=== PATIENT | female | born 1930 | race Caucasian/White ===

== ENCOUNTER 2017-06-11 06:48 | Inpatient (IN) | payer OTHER, MEDICARE ==
[~2017-06-11] VITALS: Ht 152.4 cm; Wt 45.0 kg
[~2017-06-11 06:48] MED LIST: AMLODIPINE10 MG PO; CALTRATE 600 +1 TAB PO; LEVOTHROID SO0.05 MG PO; VITAMIN B COMP1 EACH PO; VITAMIN D31000 UNI1 PO
--- NOTE | 2017-06-11 07:19 | ED NEURO DEFICIT/STROKE ---
History of Present Illness General Chief Complaint: Neuro Symptoms/ Deficit Stated Complaint: PER SON PT FEELING WEEK Source: patient, SON Exam Limitations: no limitations Vital Signs & Intake/Output Vital Signs & Intake/Output Vital Signs Date Time Temp Pulse Resp B/P B/P Pulse O2 O2 Flow FiO2 Mean Ox Delivery Rate 06/12 0800 99.4 75 20 142/40 96 Room Air 06/12 0400 96 Room Air 06/12 0000 98 Room Air 06/12 0000 99.7 82 24 128/66 98 Room Air 06/11 2000 95 Room Air 06/11 1600 99 Room Air 06/11 1600 100.9 94 22 158/80 99 Room Air ED Intake and Output 06/12 0000 06/11 1200 Intake Total 440 Output Total 1125 700 Balance -685 -700 Intake, Oral 440 Output, Urine 1125 700 Patient 99 lb 1.99 oz 94 lb 4 oz Weight Weight Bed scale Standing Scale Measurement Method Allergies Coded Allergies: aspirin (G.I. UPSET 06/11/17) Reconcile Medications Amlodipine Besylate 10 MG TABLET 1 TAB PO DAILY hypertension (Reported) Aspirin (Ecotrin*) 81 MG TABLET.DR 81 MG PO DAILY LightArrow Atorvastatin Calcium 80 MG TABLET 80 MG PO 1700 TIA Cholecalciferol (Vitamin D3) (Vitamin D3) 1,000 UNIT CAPSULE 1 CAP PO DAILY low vitamin d (Reported) Levothyroxine Sodium 50 MCG TABLET 1 TAB PO DAILY hypothyroidism (Reported) Vitamin B Complex 1 EACH CAPSULE 1 CAP PO DAILY SUPPLEMENTATION (Reported) Triage Note: 86 YEAR OLD FEMALE TO ER WITH HER SON , SON STATES THAT PT WOKE AROUND 0600 AND WAS FINE AROUND 0620 SHE STARTED TO FEEL WEAK AND WHEN SHE STARTED TO WALK SHE WAS DRAGGING HER RIGHT LEG, R SIDE NOTED WITH WEAK HAND GRASP PT ABLE TO AMBULATE BUT NOTED TO BE DRAGGING HER RIGHT SIDE AND R SIDE FACIAL DROOP AND SON STATES THAT SPEEACH IS OFF A LITTLER. DENIES HEADACHE.BP 161/90 Triage Nurses Notes Reviewed? yes Onset: Abrupt Duration: minute(s):, constant, continues in ED Timing: single episode today Severity: severe New Weakness: RUE, RLE HPI: PT PRESENTS FOR EVAL OF RIGHT ARM AND RIGHT LEG WEAKNESS, SLURRED SPEECH AND FACIAL DROOP THAT BEGAN AT 6:20AM WITNESSED BY PTS SON. Past History Travel History Traveled to [place] past 21 day No Medical History Any Pertinent Medical History? see below for history Neurological: NONE EENT: NONE Cardiovascular: hypertension Respiratory: NONE Gastrointestinal: NONE Hepatic: NONE Renal: NONE Musculoskeletal: NONE Psychiatric: NONE Endocrine: hypothyroidism Blood Disorders: NONE Cancer(s): NONE RAISE DRILLER/Reproductive: NONE Surgical History Surgical History: non-contributory Psychosocial History What is your primary language Yoruba Tobacco Use: Never used ETOH Use: denies use Illicit Drug Use: denies illicit drug use Family History Hx Contributory? No Review of Systems Review of Systems Constitutional: Reports: no symptoms. EENTM: Reports: no symptoms. Respiratory: Reports: no symptoms. Cardiovascular: Reports: no symptoms. GI: Reports: no symptoms. Genitourinary: Reports: no symptoms. Musculoskeletal: Reports: no symptoms. Skin: Reports: no symptoms. Neurological/Psychological: Reports: see HPI. Hematologic/Endocrine: Reports: no symptoms. Immunologic/Allergic: Reports: no symptoms. All Other Systems: Reviewed and Negative Physical Exam Physical Exam General Appearance: see below Cranial Nerves: see below Comments: Gen.: Well-nourished, well-developed, no acute respiratory distress. Head: Normocephalic, atraumatic. Eyes: Normal inspection bilaterally Ears: Normal inspection bilaterally Nose: Normal inspection Throat/mouth : Moist mucosa Neck: Supple, full range of motion, no goiter, equal carotid pulses, no carotid bruits Heart: Regular rate and rhythm, no murmurs rubs or gallops Lungs: Clear to auscultation bilaterally with normal air entry Chest: Nontender Back: Normal range of motion Abdomen: Soft, nontender, nondistended, normal bowel sounds Extremities: Normal range of motion grossly, equal radial pulses, no cyanosis clubbing or edema, right upper extremity and right lower extremity weakness 4 over 5 Neurologic: Cranial 2 through 12 grossly intact, speech is clear, gait not assessed (please see NIH stroke score) Skin: warm and dry Psychiatric: Calm, cooperative, no apparent delusions or hallucinations Core Measures CVA/TIA Diagnosis: Yes NIH Stroke Scale NIH Stroke Scale Response Value Level of Consciousness alert 0 LOC Questions answers both correctly 0 LOC Commands obeys both correctly 0 Best Gaze normal 0 Visual Miller no visual loss 0 Facial Paresis normal 0 Motor Arm - Left no drift 0 Motor Arm - Right drift 1 Motor Leg - Left no drift 0 Motor Leg - Right drift 1 Limb Ataxia present in one limb 1 Sensory normal 0 Best Language no aphasia 0 Dysarthria mild/mod slurring words 1 Extinction and Inattention no neglect 0 Total 4 Swallow Evaluation Pass Swallow eval date 06/11/17 Swallow eval time 0920 Sepsis Present: No Sepsis Focused Exam Completed? No Progress Differential Diagnosis: stroke Plan of Care: Orders Procedure Date/time Status ICU LAB BUNDLE 06/13 0500 Active CBC WITHOUT DIFFERENTIAL 06/13 0500 Active PROTHROMBIN TIME 06/12 2100 Active ICU LAB BUNDLE 06/12 2100 Active CBC WITHOUT DIFFERENTIAL 06/12 2100 Active EKG 06/12 1112 Active PARTIAL THROMBOPLASTIN TIME 06/12 0901 Complete PROTHROMBIN TIME 06/12 0901 Complete ICU LAB BUNDLE 06/12 0901 Complete CBC WITHOUT DIFFERENTIAL 06/12 0901 Complete Therapeutic Exercise 06/12 UNK Complete PT EVAL LOW COMPLEX 20 MIN 06/12 UNK Complete Gait Training 06/12 UNK Complete OT EVAL LOW COMPLEX 30 MIN 06/12 UNK Complete Redd, Insertion/Removal/Asses 06/12 UNK Active Current Medications Sig/Wyatt Start time Last Medication Dose Stop Time Status Admin Aspirin Buffered 81 MG DAILY 06/12 1100 AC 06/12 (Ecotrin) 1250 Levothyroxine Sodium 0.05 MG DAILY AC 06/12 0700 AC 06/12 (Synthroid) 0702 Atorvastatin Calcium 80 MG 1700 06/11 1930 AC 06/11 (Lipitor) 2102 Laboratory Tests 06/12/17 0858: Anion Gap 13, Estimated GFR > 60, Glucose 151 H, Calcium 8.5, Phosphorus 3.3, Magnesium 1.7, Total Bilirubin 0.7, AST 20, ALT 33, Albumin 3.5, PT 12.4, INR 1.18, APTT 28, CBC w Diff NO MAN DIFF REQ, RBC 4.20, MCV 88.0, MCH 29.7, RDW 13.9, MPV 10.4, Gran % 65.8, Lymphocytes % 21.9, Monocytes % 7.6, Eosinophils % 4.0, Basophils % 0.7, Absolute Granulocytes 3.6, Absolute Lymphocytes 1.2, Absolute Monocytes 0.4, Absolute Eosinophils 0.2, Absolute Basophils 0, PUBS MCHC 33.7 06/12/17 0848: Sodium Cancelled, Potassium Cancelled, Chloride Cancelled, Carbon Dioxide Cancelled, Anion Gap Cancelled, BUN Cancelled, Creatinine Cancelled, BUN/ Creatinine Ratio Cancelled 06/12/17 0610: Sodium Cancelled, Potassium Cancelled, Chloride Cancelled, Carbon Dioxide Cancelled, Anion Gap Cancelled, BUN Cancelled, Creatinine Cancelled, Estimated GFR Cancelled, Glucose Cancelled, Calcium Cancelled, Phosphorus Cancelled, Magnesium Cancelled, Total Bilirubin Cancelled, AST Cancelled, ALT Cancelled, Albumin Cancelled, PT Cancelled, INR Cancelled, APTT Cancelled, CBC w Diff Cancelled, WBC Cancelled, RBC Cancelled, Hgb Cancelled, Hct Cancelled, MCV Cancelled, MCH Cancelled, RDW Cancelled, Plt Count Cancelled, MPV Cancelled, Gran % Cancelled, Lymphocytes % Cancelled, Monocytes % Cancelled, Eosinophils % Cancelled, Basophils % Cancelled, Absolute Granulocytes Cancelled, Absolute Lymphocytes Cancelled, Absolute Monocytes Cancelled, Absolute Eosinophils Cancelled, Absolute Basophils Cancelled, PUBS MCHC Cancelled 06/11/172044: Anion Gap 13, Estimated GFR > 60, BUN/Creatinine Ratio 26.7 H, Triglycerides 75 , Cholesterol 174, LDL Cholesterol, Calc 97, HDL Cholesterol 62 H, Cholesterol/ HDL Ratio 3, APTT 27, CBC w Diff NO MAN DIFF REQ, RBC 4.05 L, MCV 89.0, MCH 30.0, RDW 14.1, MPV 10.6 H, Gran % 62.1, Lymphocytes % 23.5, Monocytes % 10.1 H, Eosinophils % 3.8, Basophils % 0.5, Absolute Granulocytes 3.9, Absolute Lymphocytes 1.5, Absolute Monocytes 0.6, Absolute Eosinophils 0.2, Absolute Basophils 0, PUBS MCHC 33.7, Urine Color YEL, Urine Clarity HAZY H, Urine pH 7.0, Ur Specific [place] 1.010, Urine Protein TRACE H, Urine Ketones NEG, Urine Nitrite NEG, Urine Bilirubin NEG, Urine Urobilinogen 0.2, Ur Leukocyte Esterase TRACE H, Ur Microscopic SEDIMENT EXAMINED, Urine RBC >75 H, Urine WBC 1-3 H, Ur Epithelial Cells RARE, Urine Bacteria RARE H, Urine Mucus RARE, Urine Hemoglobin LARGE H, Urine Glucose NEG Diagnostic Imaging: Discussed w/RAD: CT Scan. Radiology Impression: PATIENT: TIFFANI SANDOVAL PRESENT AGE: 86 PATIENT ACCOUNT NO: [id number] : 30 LOCATION: [facility] ORDERING PHYSICIAN: Vivek Chowdhury MD SERVICE DATE: 06/11/17 EXAM TYPE : CAT - CT HEAD WO IV CONTRAST EXAMINATION: CT HEAD WITHOUT CONTRAST CLINICAL INFORMATION: Right-sided weakness with slurred speech COMPARISON: 06/23/2011 TECHNIQUE: Contiguous axial imaging was performed from the skull base to vertex without intravenous administration of contrast. DLP: 543.14 mGy-cm FINDINGS: There is no evidence of acute intracranial hemorrhage or territorial infarction. No abnormal mass effect or midline shift is seen. Guerin to white matter differentiation is well preserved. No extra-axial fluid collections are identified. The ventricles are normal in size. Moderate volume loss is noted. There is moderate 2 severe periventricular white matter hypoattenuation consistent with chronic small vessel ischemic disease. The osseous structures and soft tissues are normal. The mastoid air cells and visualized portions of the paranasal sinuses are well aerated. IMPRESSION: No acute intracranial pathology identified. Chronic small vessel ischemic disease, which limits assessment for subtle acute infarct in these regions. This critical result was discussed with Vivek Chowdhury on 06/11/2017 7:38 AM, and it was ascertained that the content and urgency of the report was understood at the time of direct communication. DICTATED BY: Car Mujica MD DATE/TIME DICTATED:06/11/17735 TRUCK SERVICE MANAGER:JUAN DATE/TIME TRANSCRIBED:06/11/17735 CONFIDENTIAL, DO NOT COPY WITHOUT APPROPRIATE AUTHORIZATION. <Electronically signed in Other Vendor System> SIGNED BY: Car Mujica MD 06/11/1742 CXR Impression: PATIENT: TIFFANI SANDOVAL PRESENT AGE: 86 PATIENT ACCOUNT NO: [id number] : 30 LOCATION: [facility] ORDERING PHYSICIAN: Greg Dominguez MD SERVICE DATE: 06/11/17 EXAM TYPE: RAD - XRY- PORTABLE CHEST XRAY EXAMINATION: XR PORTABLE CHEST CLINICAL INFORMATION: Weakness COMPARISON: None TECHNIQUE: Portable frontal view of the chest was obtained. FINDINGS: Lung volumes are symmetric. No focal consolidation is seen. No evidence of pneumothorax, pleural effusion, or pulmonary edema. The cardiomediastinal contour is unremarkable. No acute osseous findings are seen. IMPRESSION: No acute cardiopulmonary findings. DICTATED BY: Car Mujica MD DATE/TIME DICTATED:06/11/17800 TRUCK SERVICE MANAGER:JUAN DATE/TIME TRANSCRIBED:06/11/17800 CONFIDENTIAL, DO NOT COPY WITHOUT APPROPRIATE AUTHORIZATION. <Electronically signed in Other Vendor System> SIGNED BY: Guanako POLOCar 06/11/17805 Initial ED EKG: NSR, RBBB Prior EKG: unchanged Comments: 07:25 D/W DR VASQUEZ. SUGGESTS CTA WHEN BUN/CR AVAILABLE. PT CANDIDATE FOR TPA. 07:39 per radiology, ct without acute change. 06/11/2017 7:43:16 AM patient's case discussed with Dr. Vasquez who feels the patient is a TPA candidate. If renal functions are appropriate patient should have a CTA for consideration of endovascular intervention. 06/11/2017 8:02:21 AM Tiffani and her son are tempting to contact another family member regarding administration of TPA. 06/11/2017 10:15:48 AM Laurita Diane MD notified of patient. 06/11/2017 11:41:15 AM patient's case discussed with SHANTE Austin who is requesting Dr. Addison review the CAT scan. he or Dr. Addison will call back with a recommendation on admission. 06/11/2017 11:53:01 AM according to SHANTE Austin, Dr. Addison has reviewed the CAT scan and feels the patient does not require transfer to a different facility and that the pseudoaneurysms may simply be a reflection of tortuosity of the vasculature. Departure Departure Disposition: STILL A PATIENT Condition: Stable Clinical Impression Primary Impression: CVA (cerebral vascular accident) Qualifiers: CVA mechanism: other Qualified Code: I63.8 - Other cerebral infarction Referrals: Shantelle Vega APRN (PCP/Family) Departure Forms: Customer Survey General Discharge Information Prescriptions: Current Visit Scripts Atorvastatin Calcium 80 MG PO 1700 30 Days Aspirin (Ecotrin*) 81 MG PO DAILY 30 Days Admission Note Spoke With: Laurita Diane MD Documentation of Exam: Documentation of any treatments & extenuating circumstances including Concerns Regarding Discharge (functional status, medication knowledge or non-compliance, living conditions, etc.) that warrant an admission rather than observation: Patient presents with clinical signs and symptoms of an acute CVA and that criterion for TPA administration. This patient now requires an IV infusion of TPA and ICU level care with close clinical monitoring of vital signs and neurologic status. Neurology consult should be obtained. Reversible causes of the patient's CVA should be investigated and treated accordingly. PT consult should be obtained given the patient's persistent right arm weakness for the possibility of short-term rehabilitation placement. Patient's medical management should be optimized. I feel she will require a multiple day hospitalization. Critical Care Note Critical Care Note Critical Care Time: 30-74 min
--- NOTE | 2017-06-11 07:42 | CT SCAN REPORT ---
EXAMINATION: CT HEAD WITHOUT CONTRAST CLINICAL INFORMATION: Right-sided weakness with slurred speech COMPARISON: 06/23/2011 TECHNIQUE: Contiguous axial imaging was performed from the skull base to vertex without intravenous administration of contrast. DLP: 543.14 mGy-cm FINDINGS: There is no evidence of acute intracranial hemorrhage or territorial infarction. No abnormal mass effect or midline shift is seen. Guerin to white matter differentiation is well preserved. No extra-axial fluid collections are identified. The ventricles are normal in size. Moderate volume loss is noted. There is moderate 2 severe periventricular white matter hypoattenuation consistent with chronic small vessel ischemic disease. The osseous structures and soft tissues are normal. The mastoid air cells and visualized portions of the paranasal sinuses are well aerated. IMPRESSION: No acute intracranial pathology identified. Chronic small vessel ischemic disease, which limits assessment for subtle acute infarct in these regions. This critical result was discussed with Vivek Chowdhury on 06/11/2017 7:38 AM, and it was ascertained that the content and urgency of the report was understood at the time of direct communication.
[2017-06-11 07:55] LABS: ABSOLUTE BASOPHIL COUNT 0 /CUMM (0.0-0.2); ABSOLUTE EOSINOPHIL COUNT 0.3 /CUMM (0.0-0.7); ABSOLUTE GRANULOCYTE CT 2.9 /CUMM (1.4-6.5); ABSOLUTE LYMPH COUNT 1.4 /CUMM (1.2-3.4); ABSOLUTE MONOCYTE COUNT 0.4 /CUMM (0.10-0.60); BASOPHIL % 0.5 % (0.0-2.0); EOSINOPHIL % 5.2 % (0-5); GRANULOCYTE % 59.7 % (42.2-75.2); MEAN CORPUSCULAR HGB 29.9 PG (27.0-31.0); MEAN CORPUSCULAR HGB CONC 33.6 G/DL (33.0-37.0); MEAN PLATELET VOLUME 10.8 FL (7.4-10.4); PLATELET COUNT 180 /CUMM (130-400); RBC DISTRIBUTION WIDTH 13.6 % (11.5-14.5); RED BLOOD CELL CT 4.49 /CUMM (4.20-5.40); WHITE BLOOD CELL COUNT 4.9 /CUMM (4.8-10.8)
[2017-06-11 07:56] LABS: PT 11.2 SEC (9.4-12.5); PTT 27 SEC (25-37)
--- NOTE | 2017-06-11 08:06 | RADIOLOGY REPORT ---
EXAMINATION: XR PORTABLE CHEST CLINICAL INFORMATION: Weakness COMPARISON: None TECHNIQUE: Portable frontal view of the chest was obtained. FINDINGS: Lung volumes are symmetric. No focal consolidation is seen. No evidence of pneumothorax, pleural effusion, or pulmonary edema. The cardiomediastinal contour is unremarkable. No acute osseous findings are seen. IMPRESSION: No acute cardiopulmonary findings.
--- NOTE | 2017-06-11 10:48 | CT SCAN REPORT ---
EXAMINATION: CT ANGIOGRAM BRAIN CLINICAL INFORMATION: 86-year-old woman with right-sided weakness. Receiving IV TPA. COMPARISON: 06/11/[address] TECHNIQUE: Test bolus sequences followed by intravenous administration 125 mL of Optiray 350. Helical imaging was performed in the axial plane from the skull base to the vertex. A delayed postcontrast CT of the head was also performed. The data was processed at the production technologist's workstation for generation of MIP sequences. Angled MIPs and volume rendered reformatted images were also generated at an offline 3D workstation. Stenoses are assessed in accordance with NASCET criteria unless otherwise indicated. DLP: 1016 mGy-cm FINDINGS: Brain: No intracranial mass, hemorrhage, extra-axial collection, or midline shift is apparent. No pathologic intra-axial enhancement is visualized. Fairly extensive chronic microvascular ischemic changes are noted throughout the brain with decreased perfusion in the left basal ganglia that is suspected to be chronic. Diffuse chronic volume loss is approximately stable. Mild mucosal thickening is noted in the left maxillary sinus. Brain CTA: There is saccular and fusiform ectasia of both distal cervical ICAs with associated tortuosity. 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 There is normal opacification of major intracranial arteries. There is moderate atherosclerotic irregularity of both cavernous carotid arteries. No focal flow-limiting stenosis, discrete proximal large artery occlusion, or saccular intradural aneurysm is identified. Timing of the contrast allows assessment of the major dural venous sinuses, which all opacify normally. IMPRESSION: No acute intracranial large artery occlusion is identified. The appearance of both distal cervical ICAs is abnormal and suggests sequelae of chronic fibromuscular dysplasia, although these vessels are incompletely assessed on this dedicated brain CTA.
--- NOTE | 2017-06-11 12:01 | Cons- Neurology ---
See Addendum General Information and HPI Consulting Request Date of Consult: 06/11/17 Requested By: Dr Chowdhury Reason for Consult: Suspected stroke syndrome Source of Information: patient, family, Vivek Chowdhury MD Exam Limitations: no limitations History of Present Illness: 86-year-old right-handed woman states she was in the kitchen around 5:30 this morning making her son's lunch, preparing some chicken when her right arm and hand began to feel numb and weak. Her son found her speech to be somewhat slurred. Her gait was a bit unsteady. There were no falls. There was no headache dizziness or visual changes. She is in the midst of having cataract procedures with Dr. Pennington. She was deemed a candidate for TPA, which she received. Currently, she is essentially free from any right-sided deficits aside from a very slight right pronator drift. There is a prior history of a TIA in about 2011 according to her son. At that time she was placed on daily aspirin but discontinued its use due to GI upset. There is no known family history of stroke. She has a remote history of brief tobacco use. She has been under the care of an orthopedist and a physical therapy for low back pain. Allergies/Medications Allergies: Coded Allergies: MDX - Aspirin (Aspirin) (G.I. UPSET 02/24/15) Home Med List: Amlodipine Besylate (Amlodipine) 10 MG TAB 1 TAB PO DAILY BP (Reported) CHOLECALCIFEROL (VITAMIN D3) (Vitamin D3) 1,000 IU SGL 1 SGL PO DAILY SUPPLEMENT (Reported) Levothyroxine Sodium (Levothroid Sodium) 0.05 MG TAB 1 TAB PO DAILY THYROID ( Reported) Vitamin B Complex 1 CAP CAP 1 CAP PO DAILY SUPPLEMENT (Reported) Current Medications: Current Medications Sig/Wyatt Start time Last Medication Dose Route Stop Time Status Admin Alteplase, 3.8476 MG BOLUS ONE 06/11 08 DC 06/11 Recombinant IV 06/11 0831 0850 Alteplase, 34.6283 MG ONCE ONE 06/11 0830 DC 06/11 Recombinant IV 06/11 0831 0851 Alteplase, 0 .STK-MED ONE 06/11 0826 DC Recombinant IV Aspirin 0 .STK-MED ONE 06/11 1024 DC PO Aspirin 81 MG ONCE ONE 06/11 1015 DC 06/11 PO 06/11 1016 1020 Review of Systems Review of Systems: REVIEW OF SYSTEMS: (-) = negative / normal blank = not discussed Neurologic: see HPI Eyes: Wears eyeglasses, having cataract surgery with Dr. Peters ENT: (-) Constitutional: (-) CV: Has seen Robert Martínez MD in the past, denies cardiac symptoms, takes amlodipine for hypertension Respiratory: (-) /Renal: (-) Musculoskeletal: Low back pain Skin: (-) Psychiatric: (-) Heme: (-) GI: (-) Allergy/Immune: (-) Endocrine: Stable hypothyroidism Other: (-) Past History Travel History Traveled to [place] past 21 day No Medical History Neurological: NONE EENT: NONE Cardiovascular: hypertension Respiratory: NONE Gastrointestinal: NONE Hepatic: NONE Renal: NONE Musculoskeletal: NONE Psychiatric: NONE Endocrine: hypothyroidism Blood Disorders: NONE Cancer(s): NONE 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 Surgical History Surgical History: non-contributory Psychosocial History ETOH Use: denies use Illicit Drug Use: denies illicit drug use Employment History Employment: Retired Exam & Diagnostic Data Vital Signs and I&O Vital Signs Date Time Temp Pulse Resp B/P B/P Pulse O2 O2 Flow FiO2 Mean Ox Delivery Rate 06/11 1150 82 20 120/80 98 Room Air 06/11 1120 88 20 120/84 98 Room Air 06/11 1050 90 20 120/80 98 Room Air 06/11 1035 98.6 88 20 130/80 98 Room Air 06/11 1020 86 20 140/80 97 Room Air 06/11 1005 85 20 130/72 98 Room Air 06/11 0950 88 20 130/70 96 Room Air 06/11 0935 99.0 83 20 138/80 98 Room Air 06/11 0920 90 20 126/70 98 Room Air 06/11 0905 89 20 130/80 98 Room Air 06/11 0850 91 20 138/80 98 Room Air 06/11 0815 98 Room Air 06/11 0809 98.4 94 20 150/80 96 Room Air 06/11 0652 97.0 110 20 161/90 96 Room Air Intake & Output 06/11 1600 06/11 0800 06/11 0000 Intake Total Output Total 700 Balance -700 Output, Urine 700 Patient 94 lb 4 oz 89 lb 15.99 oz Weight Weight Standing Scale Measurement Method Physical Exam: PHYSICAL EXAMINATION: nl = normal NT or blank = not tested GENERAL Appearance: nl Head: nl Eyes: nl ENT: nl Neck: nl Carotids: nl Lungs: nl Heart: nl Extremities: Arthritic changes in the hands NEUROLOGIC MENTAL STATUS Level of consciousness: nl Orientation: nl Attention / Concentration: nl Memory: nl Fund of Knowledge: nl Speech / Language: nl NEUROLOGIC CRANIAL NERVES I: Olfaction: NT II: Optic nerves: nl Visual pérez: nl III: Pupils: nl Levator palpebrae: nl III, IV, : Ocular alignment: nl Extraocular motility: nl Pursuits/ saccades: nl V: Facial sensation: nl Masseter/Pterygoids: nl VII: Facial Motor: nl VIII: Hearing (finger rub): nl IX, X: Uvula and palate: nl XI: SCM, Upper trap.: nl XII: Tongue: nl MOTOR / NEUROMUSCULAR Bulk: nl Tone: nl; very slight right pronator drift Strength: nl Rapid alternating movements: nl Fine motor movements: nl Abnormal / involuntary movements: none CEREBELLAR / COORDINATION: intact SENSATION: intact to light touch, joint position, vibration, temperature DTR's symmetrically trace to 1+ PLANTARS: flexor GAIT: Not tested Last 48 Hours of Lab Results: Laboratory Tests 06/11 0738 Chemistry Sodium (137 - 145 mmol/L) 141 Potassium (3.5 - 5.1 mmol/L) 3.9 Chloride (98 - 107 mmol/L) 102 Carbon Dioxide (22 - 30 mmol/L) 25 Anion Gap (5 - 16) 14 BUN (7 - 17 mg/dL) 16 Creatinine (0.5 - 1.0 mg/dL) 0.6 Estimated GFR (>60 ml/min) > 60 BUN/Creatinine Ratio (7 - 25 %) 26.7 H Glucose (65 - 99 mg/dL) 147 H Calcium (8.4 - 10.2 mg/dL) 9.6 Total Bilirubin (0.2 - 1.3 mg/dL) 0.6 AST (14 - 36 U/L) 26 ALT (9 - 52 U/L) 31 Alkaline Phosphatase (<127 U/L) 53 Total Protein (6.3 - 8.2 g/dL) 6.9 Albumin (3.5 - 5.0 g/dL) 4.4 Globulin (1.9 - 4.2 gm/dL) 2.5 Albumin/Globulin Ratio (1.1 - 2.2 %) 1.8 Free T4 (0.85 - 1.93 ng/dL) 1.60 Total T3 (0.97 - 1.69 ng/mL) 1.11 TSH &T3 &Free T4 Intrp (0.270 - 4.20 uIU/mL) 4.770 H Coagulation PT (9.4 - 12.5 SEC) 11.2 INR (0.90 - 1.19) 1.07 APTT (25 - 37 SEC) 27 Hematology CBC w Diff NO MAN DIFF REQ WBC (4.8 - 10.8 /CUMM) 4.9 RBC (4.20 - 5.40 /CUMM) 4.49 Hgb (12.0 - 16.0 G/DL) 13.4 Hct (37 - 47 %) 40.0 MCV (81.0 - 99.0 FL) 89.0 MCH (27.0 - 31.0 PG) 29.9 RDW (11.5 - 14.5 %) 13.6 Plt Count (130 - 400 /CUMM) 180 MPV (7.4 - 10.4 FL) 10.8 H Gran % (42.2 - 75.2 %) 59.7 Lymphocytes % (20.5 - 51.1 %) 27.4 Monocytes % (1.7 - 9.3 %) 7.2 Eosinophils % (0 - 5 %) 5.2 H Basophils % (0.0 - 2.0 %) 0.5 Absolute Granulocytes (1.4 - 6.5 /CUMM) 2.9 Absolute Lymphocytes (1.2 - 3.4 /CUMM) 1.4 Absolute Monocytes (0.10 - 0.60 /CUMM) 0.4 Absolute Eosinophils (0.0 - 0.7 /CUMM) 0.3 Absolute Basophils (0.0 - 0.2 /CUMM) 0 PUBS MCHC (33.0 - 37.0 G/DL) 33.6 Imaging/Other Studies: PATIENT: DESTINI SANDOVAL PRESENT AGE: 86 PATIENT ACCOUNT NO: [id number] : 30 LOCATION: [facility] ORDERING PHYSICIAN: Vivek Chowdhury MD SERVICE DATE: 06/11/17 EXAM TYPE: CAT - CT HEAD WO IV CONTRAST EXAMINATION: CT HEAD WITHOUT CONTRAST CLINICAL INFORMATION: Right-sided weakness with slurred speech COMPARISON: 06/23/2011 TECHNIQUE: Contiguous axial imaging was performed from the skull base to vertex without intravenous administration of contrast. DLP: 543.14 mGy-cm FINDINGS: There is no evidence of acute intracranial hemorrhage or territorial infarction. No abnormal mass effect or midline shift is seen. Guerin to white matter differentiation is well preserved. No extra-axial fluid collections are identified. The ventricles are normal in size. Moderate volume loss is noted. There is moderate 2 severe periventricular white matter hypoattenuation consistent with chronic small vessel ischemic disease. The osseous structures and soft tissues are normal. The mastoid air cells and visualized portions of the paranasal sinuses are well aerated. IMPRESSION: No acute intracranial pathology identified. Chronic small vessel ischemic disease, which limits assessment for subtle acute infarct in these regions. This critical result was discussed with Vivek Chowdhury on 06/11/2017 7:38 AM, and it was ascertained that the content and urgency of the report was understood at the time of direct communication. DICTATED BY: Car Mujica MD DATE/TIME DICTATED:06/11/17735 CYBER INCIDENT RESPONDER:JUAN DATE/TIME TRANSCRIBED:06/11/17735 CONFIDENTIAL, DO NOT COPY WITHOUT APPROPRIATE AUTHORIZATION. <Electronically signed in Other Vendor System> SIGNED BY: Car Mujica MD 06/11/17 0742 PATIENT: DESTINI SANDOVAL PRESENT AGE: 86 PATIENT ACCOUNT NO: [id number] : 30 LOCATION: [facility] ORDERING PHYSICIAN: Vivek Chowdhury MD SERVICE DATE: 06/11/17 EXAM TYPE: CAT - CT HEAD ANGIOGRAM EXAMINATION: CT ANGIOGRAM BRAIN CLINICAL INFORMATION: 86-year-old woman with right-sided weakness. Receiving IV TPA. COMPARISON: 06/11/[address] TECHNIQUE: Test bolus sequences followed by intravenous administration 125 mL of Optiray 350. Helical imaging was performed in the axial plane from the skull base to the vertex. A delayed postcontrast CT of the head was also performed. The data was processed at the industrial technologist's workstation for generation of MIP sequences. Angled MIPs and volume rendered reformatted images were also generated at an offline 3D workstation. Stenoses are assessed in accordance with NASCET criteria unless otherwise indicated. DLP: 1016 mGy-cm FINDINGS: Brain: No intracranial mass, hemorrhage, extra-axial collection, or midline shift is apparent. No pathologic intra-axial enhancement is visualized. Fairly extensive chronic microvascular ischemic changes are noted throughout the brain with decreased perfusion in the left basal ganglia that is suspected to be chronic. Diffuse chronic volume loss is approximately stable. Mild mucosal thickening is noted in the left maxillary sinus. Brain CTA: There is saccular and fusiform ectasia of both distal cervical ICAs with associated tortuosity. 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 There is normal opacification of major intracranial arteries. There is moderate atherosclerotic irregularity of both cavernous carotid arteries. No focal flow-limiting stenosis, discrete proximal large artery occlusion, or saccular intradural aneurysm is identified. Timing of the contrast allows assessment of the major dural venous sinuses, which all opacify normally. IMPRESSION: No acute intracranial large artery occlusion is identified. The appearance of both distal cervical ICAs is abnormal and suggests sequelae of chronic fibromuscular dysplasia, although these vessels are incompletely assessed on this dedicated brain CTA. DICTATED BY: Citlalli Renner MD DATE/TIME DICTATED:06/11/171033 CYBER INCIDENT RESPONDER:JUAN DATE/TIME TRANSCRIBED:06/11/171033 CONFIDENTIAL, DO NOT COPY WITHOUT APPROPRIATE AUTHORIZATION. Assessment/Plan Assessment: Small stroke versus TIA, left hemispheric, likely subcortical based on clinical presentation. Stroke risk factors: Prior TIA, hypertension Recommendations: Admitted to the medical ICU for frequent neuro checks and blood pressure monitoring. Use short acting antihypertensive medications as needed to keep the systolic blood pressure lower than 1 80 mmHg If her repeat head CT is stable 24 hours post TPA infusion, then would begin antiplatelet therapy either in the form of Aspirin 81 mg per day taken with food , or,if she is unable to tolerate aspirin from a GI perspective, then would instead use Plavix 75 mg daily Check a fasting lipid profile and add a high intensity statin. For now use Venodyne boots for DVT prophylaxis Consult physical therapy tomorrow. Copies To: Court POLO,Greg Mann Consult Acknowledgment - Thank you for your consult request.
--- NOTE | 2017-06-11 12:31 | History & Physical ---
Corie Cummings 06/11/17 1231: General Information and HPI MD Statement: I have seen and personally examined DESTINI SANDOVAL and documented this H&P. The patient is a 86 year old F who presented with a patient stated chief complaint of Weakness Source of Information: patient, family, Vivek Chowdhury MD Exam Limitations: no limitations History of Present Illness: 86 year old woman with pmh hypertension, hypothyroidism brought in by son for upper and lower right sided weakness which started around 6:30am this morning. Ms. Sandoval is a very active 86-year-old who is independent with all of her activities of daily living and managing her own finances. Around 6:30 this morning she was preparing lunch for one of her sons when she felt a weakness and dragging sensation in her right leg with some funny feeling in her right hand this weakness progressively worsened and she felt very scared until she was unable to move her right foot at this time they brought her over to the ED. Both son and patient report that her symptoms started to improve a little bit prior to the TPA and completely resolved after TPA was administered. Denies any headache, dizzinees, fever, chills, cough, chest pain, palpitations, syncope, numbness, tingling, bowel and bladder symptoms. 3 years ago Shantelle Vega her HEAD MIXER had sent her up for work up with her vessel manager Dr. Martínez as she felt she had irregular heartbeat. An echo, EKG and a 24-hour Holter monitor was done which was normal. Allergies/Medications Allergies: Coded Allergies: aspirin (G.I. UPSET 06/11/17) Home Med list Amlodipine Besylate 10 MG TABLET 1 TAB PO DAILY hypertension (Reported) CHOLECALCIFEROL (VITAMIN D3) (Vitamin D3) 1,000 IU SGL 1 SGL PO DAILY SUPPLEMENT (Reported) Levothyroxine Sodium 50 MCG TABLET 1 TAB PO DAILY hypothyroidism (Reported) Vitamin B Complex 1 CAP CAP 1 CAP PO DAILY SUPPLEMENT (Reported) Compliance With Home Meds: GOOD Past History Travel History Traveled to [place] past 21 day No Medical History Neurological: NONE EENT: NONE Cardiovascular: hypertension Respiratory: NONE Gastrointestinal: NONE Hepatic: NONE Renal: NONE Musculoskeletal: NONE Psychiatric: NONE Endocrine: hypothyroidism Blood Disorders: NONE 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 Home Who Do You Live With? self Services at Home: None Smoking Status: Former Smoker ETOH Use: denies use Illicit Drug Use: denies illicit drug use Name of POA/HCP: her two sons Functional Ability ADLs Independent: dressing, eating, toileting, bathing. Ambulation: independent IADLs Independent: shopping, housework, finances, food prep, telephone, transportation , medication admin. Employment History Employment Retired Review of Systems Review of Systems Constitutional: Denies: chills, diaphoresis, fever, malaise, weakness, unexplained weight loss. Cardiovascular: Denies: chest pain, edema, orthopena, palpitations, peripheral edema, syncope. Respiratory: Denies: cough, hemoptysis, orthopnea, short of breath, sputum production, stridor, wheezing. GI: Denies: abdominal pain, bloating, constipation, diarrhea, distention, bowel incontinence, melena, nausea, bloody stool, changes in stool, vomiting, steatorrhea. Genitourinary: Denies: discharge, dysuria, frequency, hematuria, hesitation, nocturia, pain, urgency. Neurological/Psychological: Denies: anxiety, ataxia, cognitive dysfunction, confusion, depressed, dementia, emotional problems, headache, numbness, paresthesia, pre-existing deficit, petit mal seizures, tingling, tremors, tonic-clonic seizures, unable to move lower ext , unable to move upper ext, weakness, other. Exam & Diagnostic Data Last 24 Hrs of Vital Signs/I&O Vital Signs Date Time Temp Pulse Resp B/P B/P Pulse O2 O2 Flow FiO2 Mean Ox Delivery Rate 06/11 1250 98.1 89 20 130/70 98 Room Air 06/11 1220 95 20 120/68 97 Room Air 06/11 1150 82 20 120/80 98 Room Air 06/11 1120 88 20 120/84 98 Room Air 06/11 1050 90 20 120/80 98 Room Air 06/11 1035 98.6 88 20 130/80 98 Room Air 06/11 1020 86 20 140/80 97 Room Air 06/11 1005 85 20 130/72 98 Room Air 06/11 0950 88 20 130/70 96 Room Air 06/11 0935 99.0 83 20 138/80 98 Room Air 06/11 0920 90 20 126/70 98 Room Air 06/11 0905 89 20 130/80 98 Room Air 06/11 0850 91 20 138/80 98 Room Air 06/11 0815 98 Room Air 06/11 0809 98.4 94 20 150/80 96 Room Air 06/11 0652 97.0 110 20 161/90 96 Room Air Intake & Output 06/11 1600 06/11 0800 06/11 0000 Intake Total Output Total 1400 Balance -1400 Output, Urine 1400 Patient 94 lb 4 oz 89 lb 15.99 oz Weight Weight Standing Scale Measurement Method Physical Exam General Appearance Alert, Oriented X3, Cooperative, No Acute Distress Skin No Rashes, No Breakdown HEENT Atraumatic, right eye irregular shape s/p cataract surgery Neck Supple, No JVD, No thryomegaly Lymphatic Cervical nl Cardiovascular Regular Rate, Normal S1, Normal S2, systolic murmur Lungs Clear to Auscultation, Normal Air Movement Abdomen Normal Bowel Sounds, Soft, No Tenderness Neurological Normal Speech, Strength at 5/5 X4 Ext, Normal Tone, Sensation Intact, Cranial Nerves 3-12 NL, Reflexes 2+, negative babinski Extremities No Edema Diagnostic Data EKG Results Normal sinus RBBB, HR 89, QTC 492 CXR Results SERVICE DATE: 06/11/17 EXAM TYPE: RAD - XRY-PORTABLE CHEST XRAY FINDINGS: Lung volumes are symmetric. No focal consolidation is seen. No evidence of pneumothorax, pleural effusion, or pulmonary edema. The cardiomediastinal contour is unremarkable. No acute osseous findings are seen. IMPRESSION: No acute cardiopulmonary findings. Other Results SERVICE DATE: 06/11/17 EXAM TYPE: CAT - CT HEAD WO IV CONTRAST EXAMINATION: FINDINGS: There is no evidence of acute intracranial hemorrhage or territorial infarction. No abnormal mass effect or midline shift is seen. Guerin to white matter differentiation is well preserved. No extra-axial fluid collections are identified. The ventricles are normal in size. Moderate volume loss is noted. There is moderate 2 severe periventricular white matter hypoattenuation consistent with chronic small vessel ischemic disease. The osseous structures and soft tissues are normal. The mastoid air cells and visualized portions of the paranasal sinuses are well aerated. IMPRESSION: No acute intracranial pathology identified. Chronic small vessel ischemic disease, which limits assessment for subtle acute infarct in these regions. SERVICE DATE: 01/16/18-0829 EXAM TYPE: CAT - CT HEAD ANGIOGRAM FINDINGS: Brain: No intracranial mass, hemorrhage, extra-axial collection, or midline shift is apparent. No pathologic intra-axial enhancement is visualized. Fairly extensive chronic microvascular ischemic changes are noted throughout the brain with decreased perfusion in the left basal ganglia that is suspected to be chronic. Diffuse chronic volume loss is approximately stable. Mild mucosal thickening is noted in the left maxillary sinus. Brain CTA: There is saccular and fusiform ectasia of both distal cervical ICAs with associated tortuosity. 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 There is normal opacification of major intracranial arteries. There is moderate atherosclerotic irregularity of both cavernous carotid arteries. No focal flow-limiting stenosis, discrete proximal large artery occlusion, or saccular intradural aneurysm is identified. Timing of the contrast allows assessment of the major dural venous sinuses, which all opacify normally. IMPRESSION: No acute intracranial large artery occlusion is identified. The appearance of both distal cervical ICAs is abnormal and suggests sequelae of chronic fibromuscular dysplasia, although these vessels are incompletely assessed on this dedicated brain CTA. Assessment/Plan Assessment: 86 year old woman with pmh hypertension, hypothyroidism rods in by son for upper and lower right sided weakness which started around 6:30am this morning, her symptoms have currently resolved. Vitals on admission afebrile no leukocytosis, hemoglobin 13.4, hematocrit 40, sodium 141, potassium 3.9, chloride 102, bicarbonate 25, BUN 16, creatinine 0.6, glucose 147, TSH 4.7 EKG shows normal sinus rhythm right bundle branch block heart rate 89, QTC 492 Chest x-ray: Lung volumes are symmetric. No focal consolidation is seen. No evidence of pneumothorax, pleural effusion, or pulmonary edema. CT head:No acute intracranial pathology identified. Chronic small vessel ischemic disease CTA head: saccular and fusiform ectasia of both distal cervical ICAs with associated tortuosity. 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 No focal flow-limiting stenosis, discrete proximal large artery occlusion, or saccular intradural aneurysm is identified. ED course: She was given TPA around 8:50 am 06/11/17 Problem list: TIA Hypertension Hypothyroidism Plan -Admit to ICU for close monitoring, no blood work till 12 hours status post TPA -Per neuro and neurosurgery patient is stable to be monitored here at [facility] and her pseudoaneurysm there is no immediate risk of bleeding status post the TPA and the pseudoaneurysm could also possibly be a tortuosity of her vessels. -Manual blood pressures for the next 48 hours -Redd in place -Neurology on board appreciate recommendations, will start high intensity statin , if repeat head CT is stable 24 hours post TPA infusion, they recomend antiplatelet therapy either Aspirin 81 mg, if she is unable to tolerate aspirin then can give Plavix 75 mg daily -We'll hold her antihypertensive for now allow permissive hypertension until systolic 180 -Her vessel manager Dr. Martínez is informed, follow-up echocardiogram, lipid profile -PT to evaluate and treat -DVT prophylaxis with Alps -Heart healthy diet as she has passed a bedside swallow eval -Full code As Ranked By This Provider Problem List: 1. TIA (transient ischemic attack) 2. Hypothyroidism 3. Hypertension Core Measures/Misc (02/10) Acute Coronary Syndrome ACS Diagnosis: No Congestive Heart Failure Congestive Heart Failure Diagnosis No Cerebrovascular Accident CVA/TIA Diagnosis: Yes NIH Stroke Scale: Total 0 Date Last Known Well: 06/11/17 Time Last Known Well: 0600 Swallow Evaluation Pass No Anticoagulant d/t Medical Contraindication (tpa done) VTE (View Protocol) VTE Risk Factors Acute Medical Illness No Mechanical VTE Prophylaxis d/t N/A MechProphylax Ordered No VTE Pharm Prophylaxis d/t Medical Contraindication (tpa given) Sepsis (View protocol) Sepsis Present: No Laurita Diane MD 06/11/17 1355: Attending MD Review Statement Attending Statement Attending MD Statement: examined this patient, discuss w/resident/PA/PLASTIC WELDER, agreed w/resident/PA/PLASTIC WELDER, discussed with family, reviewed EMR data (avail), reviewed images
[2017-06-11] MEDS ORDERED: AMLODIPINE BESY10 M1 PO (13:22)
[2017-06-11] MEDS ORDERED: LEVOTHYROXINE50 MCG PO (13:23)
--- NOTE | 2017-06-11 13:43 | Admission Certification ---
Admission Certification Certification Statement - As attending physician, I certify that at the time of - admission, based on clinical presentation, severity of - symptoms, need for further diagnostic testing and - therapeutic interventions, and risk of adverse outcomes - without in-hospital treatment, in my clinical assessment, - this patient requires an acute hospital stay for a minimum - of two nights or longer. I have also considered psychsocial - factors such as support system, advanced age, financial - issues, cognitive issues, and failed out-patient treatments, - past re-admission history, safety of patient, and lack of - compliance as applicable. Specific rationale supporting this admission is: ICU monitoring following a CVA - given TPA.
[2017-06-11 14:15] VITALS: BP 158/82
[2017-06-11 16:00] VITALS: BP 158/80
--- NOTE | 2017-06-11 18:49 | Cons- Cardiology ---
General Information and HPI Consulting Request Date of Consult: 06/11/17 Requested By: Benedicto POLO,Laurita Barnhart Reason for Consult: TIA History of Present Illness: The patient is an 86-year-old female with history of hypertension, prior TIA, premature ventricular contractions, and hypothyroidism who follows up with me in the office for her cardiovascular issues. She was preparing lunch for her son at 6:30 AM today when she developed weakness in her hand and right leg. She also noted a speech deficit. She was brought to the emergency department where tPA was administered for treatment of acute CVA. The symptoms had started to improve prior to TPA and resolved completely after the TPA administration. She has not had any cardiac symptoms. No chest pain. No palpitations. No shortness of breath. No diaphoresis. No nausea or vomiting. Allergies/Medications Allergies: Coded Allergies: aspirin (G.I. UPSET 06/11/17) Home Med List: Amlodipine Besylate 10 MG TABLET 1 TAB PO DAILY hypertension (Reported) CHOLECALCIFEROL (VITAMIN D3) (Vitamin D3) 1,000 IU SGL 1 SGL PO DAILY SUPPLEMENT (Reported) Levothyroxine Sodium 50 MCG TABLET 1 TAB PO DAILY hypothyroidism (Reported) Vitamin B Complex 1 CAP CAP 1 CAP PO DAILY SUPPLEMENT (Reported) Current Medications: Current Medications Sig/Wyatt Start time Last Medication Dose Route Stop Time Status Admin Alteplase, 3.8476 MG BOLUS ONE 06/11 0830 DC 06/11 Recombinant IV 06/11 0831 0850 Alteplase, 34.6283 MG ONCE ONE 06/11 0830 DC 06/11 Recombinant IV 06/11 0831 0851 Alteplase, 0 .STK-MED ONE 06/11 0826 DC Recombinant IV Aspirin 0 .STK-MED ONE 06/11 1024 DC PO Aspirin 81 MG ONCE ONE 06/11 1015 DC 06/11 PO 06/11 1016 1020 Levothyroxine Sodium 0.05 MG DAILY AC 06/12 0700 AC PO Review of Systems Review of Systems: No rash. No tremor. No melena. All other systems were reviewed, and were noted to be negative. 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 Home Who Do You Live With? self Services at Home: None Smoking Status: Former Smoker ETOH Use: denies use Illicit Drug Use: denies illicit drug use Name of POA/HCP: her two sons Functional Ability ADLs Independent: dressing, eating, toileting, bathing. Ambulation: independent IADLs Independent: shopping, housework, finances, food prep, telephone, transportation , medication admin. Employment History Employment: Retired Exam & Diagnostic Data Vital Signs and I&O Vital Signs Date Time Temp Pulse Resp B/P B/P Pulse O2 O2 Flow FiO2 Mean Ox Delivery Rate 06/11 1600 99 Room Air 06/11 1600 100.9 94 22 158/80 99 Room Air 06/11 1415 95 Room Air 06/11 1415 100.9 96 26 158/82 95 Room Air 06/11 1350 96 20 128/70 97 Room Air 06/11 1320 98.2 94 20 130/80 97 Room Air 06/11 1250 98.1 89 20 130/70 98 Room Air 06/11 1220 95 20 120/68 97 Room Air 06/11 1150 82 20 120/80 98 Room Air 06/11 1120 88 20 120/84 98 Room Air 06/11 1050 90 20 120/80 98 Room Air 06/11 1035 98.6 88 20 130/80 98 Room Air 06/11 1020 86 20 140/80 97 Room Air 06/11 1005 85 20 130/72 98 Room Air 06/11 0950 88 20 130/70 96 Room Air 06/11 0935 99.0 83 20 138/80 98 Room Air 06/11 0920 90 20 126/70 98 Room Air 06/11 0905 89 20 130/80 98 Room Air 06/11 0850 91 20 138/80 98 Room Air 06/11 0815 98 Room Air 06/11 0809 98.4 94 20 150/80 96 Room Air 06/11 0652 97.0 110 20 161/90 96 Room Air Intake & Output 06/11 1600 06/11 0800 06/11 0000 06/10 1600 06/10 0800 06/10 0000 Intake Total Output Total 1400 Balance -1400 Output, Urine 1400 Patient 99 lb 1.99 oz 89 lb 15.99 oz Weight Weight Bed scale Measurement Method Physical Exam: Gen: The patient is in no acute distress HEENT: Normal nose, ears, and oropharynx. Pupils equal bilaterally. Conjunctiva normal. Neck: Supple with no JVD, no masses, and no thyromegaly Lungs: Clear to auscultation with normal respiratory effort Heart: RRR, S1, S2, no murmurs. No peripheral edema, 2+ pulses in the lower extremities bilaterally Abdomen: Soft, nontender, no masses. No hepatomegaly. No splenomegaly Extremities: No clubbing or cyanosis. Normal muscle strength in the upper and lower extremities Skin: Normal skin turgor with no skin ulcers or lesions noted. Neuro: Cranial nerves intact. Sensation intact Psych: Alert and oriented 3 with appropriate affect Labs/Quoc Results: Laboratory Tests 06/11 0738 Chemistry Sodium (137 - 145 mmol/L) 141 Potassium (3.5 - 5.1 mmol/L) 3.9 Chloride (98 - 107 mmol/L) 102 Carbon Dioxide (22 - 30 mmol/L) 25 Anion Gap (5 - 16) 14 BUN (7 - 17 mg/dL) 16 Creatinine (0.5 - 1.0 mg/dL) 0.6 Estimated GFR (>60 ml/min) > 60 BUN/Creatinine Ratio (7 - 25 %) 26.7 H Glucose (65 - 99 mg/dL) 147 H Calcium (8.4 - 10.2 mg/dL) 9.6 Total Bilirubin (0.2 - 1.3 mg/dL) 0.6 AST (14 - 36 U/L) 26 ALT (9 - 52 U/L) 31 Alkaline Phosphatase (<127 U/L) 53 Total Protein (6.3 - 8.2 g/dL) 6.9 Albumin (3.5 - 5.0 g/dL) 4.4 Globulin (1.9 - 4.2 gm/dL) 2.5 Albumin/Globulin Ratio (1.1 - 2.2 %) 1.8 Free T4 (0.85 - 1.93 ng/dL) 1.60 Total T3 (0.97 - 1.69 ng/mL) 1.11 TSH &T3 &Free T4 Intrp (0.270 - 4.20 uIU/mL) 4.770 H Coagulation PT (9.4 - 12.5 SEC) 11.2 INR (0.90 - 1.19) 1.07 APTT (25 - 37 SEC) 27 Hematology CBC w Diff NO MAN DIFF REQ WBC (4.8 - 10.8 /CUMM) 4.9 RBC (4.20 - 5.40 /CUMM) 4.49 Hgb (12.0 - 16.0 G/DL) 13.4 Hct (37 - 47 %) 40.0 MCV (81.0 - 99.0 FL) 89.0 MCH (27.0 - 31.0 PG) 29.9 RDW (11.5 - 14.5 %) 13.6 Plt Count (130 - 400 /CUMM) 180 MPV (7.4 - 10.4 FL) 10.8 H Gran % (42.2 - 75.2 %) 59.7 Lymphocytes % (20.5 - 51.1 %) 27.4 Monocytes % (1.7 - 9.3 %) 7.2 Eosinophils % (0 - 5 %) 5.2 H Basophils % (0.0 - 2.0 %) 0.5 Absolute Granulocytes (1.4 - 6.5 /CUMM) 2.9 Absolute Lymphocytes (1.2 - 3.4 /CUMM) 1.4 Absolute Monocytes (0.10 - 0.60 /CUMM) 0.4 Absolute Eosinophils (0.0 - 0.7 /CUMM) 0.3 Absolute Basophils (0.0 - 0.2 /CUMM) 0 PUBS MCHC (33.0 - 37.0 G/DL) 33.6 Diagnostic Data EKG Results EKG tracing is independently reviewed, and reveals normal sinus rhythm at 89 with right bundle-branch block CXR Results Lung volumes are symmetric. No focal consolidation is seen. No evidence of pneumothorax, pleural effusion, or pulmonary edema. The cardiomediastinal contour is unremarkable. No acute osseous findings are seen. Other Results Head CT: No acute intracranial pathology identified. Chronic small vessel ischemic disease, which limits assessment for subtle acute infarct in these regions. CTA of the head: No acute intracranial large artery occlusion is identified. The appearance of both distal cervical ICAs is abnormal and suggests sequelae of chronic fibromuscular dysplasia, although these vessels are incompletely assessed on this dedicated brain CTA. Assessment/Plan Assessment/Plan 86-year-old female with history of hypertension, premature ventricular contractions, and prior TIA presenting with stroke versus TIA. Symptoms have completely resolved with TPA. Recommendations: * Follow neurology recommendations regarding initiation of antiplatelet therapy * Check lipid profile and initiate high-dose statin therapy * Echocardiogram * Carotid Doppler study * Amlodipine is on hold to avoid hypotension in the setting of CVA * Monitor on telemetry for atrial fibrillation or other arrhythmias. Will consider possible longer term monitoring after discharge to rule out paroxysmal atrial fibrillation. Consult Acknowledgment - Thank you for your consult request.
[2017-06-11 21:21] LABS: ABSOLUTE BASOPHIL COUNT 0 /CUMM (0.0-0.2); ABSOLUTE EOSINOPHIL COUNT 0.2 /CUMM (0.0-0.7); ABSOLUTE GRANULOCYTE CT 3.9 /CUMM (1.4-6.5); ABSOLUTE LYMPH COUNT 1.5 /CUMM (1.2-3.4); ABSOLUTE MONOCYTE COUNT 0.6 /CUMM (0.10-0.60); BASOPHIL % 0.5 % (0.0-2.0); EOSINOPHIL % 3.8 % (0-5); GRANULOCYTE % 62.1 % (42.2-75.2); HEMATOCRIT 36.1 % (37-47); MEAN CORPUSCULAR HGB CONC 33.7 G/DL (33.0-37.0); MEAN PLATELET VOLUME 10.6 FL (7.4-10.4); PLATELET COUNT 178 /CUMM (130-400); RBC DISTRIBUTION WIDTH 14.1 % (11.5-14.5); RED BLOOD CELL CT 4.05 /CUMM (4.20-5.40); WHITE BLOOD CELL COUNT 6.2 /CUMM (4.8-10.8)
[2017-06-11 21:29] LABS: PTT 27 SEC (25-37)
[2017-06-12] VITALS: BP 128/66
[2017-06-12 08:00] VITALS: BP 142/40
--- NOTE | 2017-06-12 08:16 | ULTRASOUND REPORT ---
EXAMINATION: DUPLEX BILATERAL CAROTID ULTRASOUND CLINICAL INFORMATION: TIA versus stroke. COMPARISON: Carotid ultrasound 11/05/2011 TECHNIQUE: Duplex bilateral carotid US was performed using real-time ultrasound and Doppler techniques (integrating B-mode 2D vascular images, Doppler spectral analysis and color flow Doppler imaging). These techniques were utilized to interrogate the extracranial carotid and vertebral arteries bilaterally. The degree of stenosis is based off criteria similar to NASCET. FINDINGS: 1. On the right: Echogenic plaque is present at the carotid bifurcation but velocity measurements are normal and do not suggest a stenosis of greater than 50% diameter reduction in the right ICA. The vertebral artery is patent demonstrating antegrade flow. 2. On the left: Echogenic plaque is present at the carotid bifurcation but velocity measurements are normal and do not suggest a stenosis of greater than 50% diameter reduction in the left ICA. The vertebral artery is patent demonstrating antegrade flow. The external carotid arteries appear unremarkable. IMPRESSION: Plaque is present in the internal carotid arteries but velocity measurements are normal and there is no evidence to suggest a hemodynamically significant stenosis of greater than 50% diameter reduction.
--- NOTE | 2017-06-12 08:17 | PN- Resident CRCU ---
Subjective HPI/CRCU Issues: TIA s/p tPA 24 Hour Events: Received tPA yesterday. Her symptoms have resolved. Her head CT has been negative for any acute intracranial bleed. Patient reports feeling better. Slept well overnight. Offers no complaints. Objective Vital Signs & I&O Last 8 Hrs of Vitals and I&O: . Exam General Appearance: well developed/nourished, no apparent distress, alert, awake , comfortable Head: atraumatic, normal appearance Respiratory: normal breath sounds, chest non-tender, lungs clear Cardiovascular: regular rate/rhythm Gastrointestinal: soft, non-tender Extremities: no edema Cranial Nerves: normal hearing, normal speech, PERRL, 3-12 intact Skin: intact, warm/dry Skin Temp/Moisture Exam: Warm/Dry Sepsis Skin Exam (color): Normal for Ethnicity Current Medications: Current Medications Sig/Wyatt Start time Last Medication Dose Route Stop Time Status Admin Aspirin Buffered 81 MG DAILY 06/12 1100 AC 06/12 PO 1250 Atorvastatin Calcium 80 MG 1700 06/11 1930 AC 06/11 PO 2102 Levothyroxine Sodium 0.05 MG DAILY AC 06/12 0700 AC 06/12 PO 0702 Magnesium Oxide 400 MG ONE ONE 06/12 1230 DC 06/12 PO 06/12 1231 1250 Potassium Chloride 40 MEQ ONCE ONE 06/12 1230 DC 06/12 PO 06/12 1231 1250 Impression/Plan Impression/Problem List Impression: 86 year old woman with PMH hypertension, hypothyroidism, previous TIA in 2011 brought in by son for upper and lower right sided weakness, slurred speech and unsteady gait which started around 6:30am this morning, her symptoms have currently resolved. Problem List: 1. CVA s/p tPA 2. History of Hypertension Plan: * Continue monitoring in ICU * She had tPA yesterday. Repeat CT head (post tPA) 06/12 shows no evidence of hemorrhage or infarct. But does show some moderate small vessel ischemic changes in a background of mild diffuse brain parenchymal volume loss. * Started on Aspirin EC 81mg. * If unable to tolerate will switch to Plavix 75mg. * Continue high dose statin. * Continue to hold Amlodipine. * Goal BP to keep systolic below 180mm Hg as the patient received tPA. * Carotid Doppler does reveal plaque but <50% stenosis. * Echocardiogram - pending. * Continue PT/OT * Diet: Heart Healthy * DVT Prophylaxis: ALPS * Code: Full Problem List: 1. CVA (cerebral vascular accident) Pain Ratin Tomorrow's Labs & Rationales: CBC, ICU bundle Plan DVT/Prophylaxis: mechanical
--- NOTE | 2017-06-12 08:17 | PN- CRCU ---
Subjective HPI/Critical Care Issues: The patient is awake and alert. She reports feeling significantly improved. She no longer has any neurologic symptoms. She has not had any significant bleeding or change in mental status post TPA. Her blood pressure is well- controlled never no overnight events reported. Objective Current Medications: Current Medications Sig/Wyatt Start time Last Medication Dose Route Stop Time Status Admin Alteplase, 3.8476 MG BOLUS ONE 06/11 08 DC 06/11 Recombinant IV 06/11 0831 0850 Alteplase, 34.6283 MG ONCE ONE 06/11 829 DC 06/11 Recombinant IV 06/11 0831 0851 Alteplase, 0 .STK-MED ONE 06/11 0826 DC Recombinant IV Aspirin 0 .STK-MED ONE 06/11 1024 DC PO Aspirin 81 MG ONCE ONE 06/11 1015 DC 06/11 PO 06/11 1016 1020 Atorvastatin Calcium 80 MG 1700 06/11 1930 AC 06/11 PO 2102 Levothyroxine Sodium 0.05 MG DAILY AC 06/12 0700 AC 06/12 PO 0702 Vital Signs & I&O Last 24 Hrs of Vitals and I&O: Vital Signs Date Time Temp Pulse Resp B/P B/P Pulse O2 O2 Flow FiO2 Mean Ox Delivery Rate 06/12 0400 96 Room Air 06/12 0000 98 Room Air 06/12 0000 99.7 82 24 128/66 98 Room Air 06/11 2000 95 Room Air 06/11 1600 99 Room Air 06/11 1600 100.9 94 22 158/80 99 Room Air 06/11 1415 95 Room Air 06/11 1415 100.9 96 26 158/82 95 Room Air 06/11 1350 96 20 128/70 97 Room Air 06/11 1320 98.2 94 20 130/80 97 Room Air 06/11 1250 98.1 89 20 130/70 98 Room Air 06/11 1220 95 20 120/68 97 Room Air 06/11 1150 82 20 120/80 98 Room Air 06/11 1120 88 20 120/84 98 Room Air 06/11 1050 90 20 120/80 98 Room Air 06/11 1035 98.6 88 20 130/80 98 Room Air 06/11 1020 86 20 140/80 97 Room Air 06/11 1005 85 20 130/72 98 Room Air 06/11 0950 88 20 130/70 96 Room Air 06/11 0935 99.0 83 20 138/80 98 Room Air 06/11 0920 90 20 126/70 98 Room Air 06/11 0905 89 20 130/80 98 Room Air 06/11 0850 91 20 138/80 98 Room Air 06/11 0815 98 Room Air Intake & Output 06/12 1600 06/12 0800 06/12 0000 Intake Total 350 440 Output Total 525 425 Balance -175 15 Intake, Oral 350 440 Output, Urine 525 425 Exam General Appearance: well developed/nourished, no apparent distress, alert, awake , comfortable, thin Head: atraumatic, normal appearance Neck: normal inspection, supple Respiratory: normal breath sounds, chest non-tender, no respiratory distress Cardiovascular: regular rate/rhythm Abdomen: normal bowel sounds, soft, non-tender Extremities: no edema Skin: intact, normal color, warm/dry Results Last 24 Hrs of Lab Results: Laboratory Tests 06/12/17 0610: Sodium Pending, Potassium Pending, Chloride Pending, Carbon Dioxide Pending, Anion Gap Pending, BUN Pending, Creatinine Pending, Glucose Pending, Calcium Pending, Phosphorus Pending, Magnesium Pending, Total Bilirubin Pending, AST Pending, ALT Pending, Albumin Pending, PT Pending, INR Pending, APTT Pending, CBC w Diff Pending, WBC Pending, RBC Pending, Hgb Pending, Hct Pending, MCV Pending, MCH Pending, RDW Pending, Plt Count Pending, MPV Pending, PUBS MCHC Pending 06/11/172044: Anion Gap 13, Estimated GFR > 60, BUN/Creatinine Ratio 26.7 H, Triglycerides 75 , Cholesterol 174, LDL Cholesterol, Calc 97, HDL Cholesterol 62 H, Cholesterol/ HDL Ratio 3, APTT 27, CBC w Diff NO MAN DIFF REQ, RBC 4.05 L, MCV 89.0, MCH 30.0, RDW 14.1, MPV 10.6 H, Gran % 62.1, Lymphocytes % 23.5, Monocytes % 10.1 H, Eosinophils % 3.8, Basophils % 0.5, Absolute Granulocytes 3.9, Absolute Lymphocytes 1.5, Absolute Monocytes 0.6, Absolute Eosinophils 0.2, Absolute Basophils 0, PUBS MCHC 33.7, Urine Color YEL, Urine Clarity HAZY H, Urine pH 7.0, Ur Specific [place] 1.010, Urine Protein TRACE H, Urine Ketones NEG, Urine Nitrite NEG, Urine Bilirubin NEG, Urine Urobilinogen 0.2, Ur Leukocyte Esterase TRACE H, Ur Microscopic SEDIMENT EXAMINED, Urine RBC >75 H, Urine WBC 1-3 H, Ur Epithelial Cells RARE, Urine Bacteria RARE H, Urine Mucus RARE, Urine Hemoglobin LARGE H, Urine Glucose NEG Impression/Plan Impression/Plan Impression/Plan: 1. TIA, s/p TPA. 2. History of hypertension. 3. Hypothyroidism. 4. Pseudoaneurysm. Recommendations: * Continue post TPA protocol. * Per neuro and neurosurgery, the patient is stable and can continue to be monitored in the ICU regardless of the pseudoaneurysm. * Continue to monitor blood pressure closely. * Redd in place, continue to monitor I's and O's. * Neurology on board appreciate recommendations, will continue high intensity statin, if repeat head CT is stable 24 hours post TPA infusion, they recomend antiplatelet therapy either Aspirin 81 mg, if she is unable to tolerate aspirin then can give Plavix 75 mg daily. * Follow up cardiology recommendations, appreciate input. * PT to evaluate and treat. * DVT prophylaxis with Alps. * Heart healthy diet to continue. * Full code.
[2017-06-12 09:19] LABS: ABSOLUTE BASOPHIL COUNT 0 /CUMM (0.0-0.2); ABSOLUTE EOSINOPHIL COUNT 0.2 /CUMM (0.0-0.7); ABSOLUTE GRANULOCYTE CT 3.6 /CUMM (1.4-6.5); ABSOLUTE LYMPH COUNT 1.2 /CUMM (1.2-3.4); ABSOLUTE MONOCYTE COUNT 0.4 /CUMM (0.10-0.60); BASOPHIL % 0.7 % (0.0-2.0); GRANULOCYTE % 65.8 % (42.2-75.2); MEAN CORPUSCULAR HGB 29.7 PG (27.0-31.0); MEAN CORPUSCULAR HGB CONC 33.7 G/DL (33.0-37.0); MEAN PLATELET VOLUME 10.4 FL (7.4-10.4); PLATELET COUNT 184 /CUMM (130-400); RBC DISTRIBUTION WIDTH 13.9 % (11.5-14.5); WHITE BLOOD CELL COUNT 5.5 /CUMM (4.8-10.8)
[2017-06-12 09:31] LABS: PT 12.4 SEC (9.4-12.5); PTT 28 SEC (25-37)
--- NOTE | 2017-06-12 09:34 | CT SCAN REPORT ---
EXAMINATION: CT HEAD WITHOUT CONTRAST CLINICAL INFORMATION: 24 hours status post TPA. COMPARISON: Head CTA 06/11/2017. TECHNIQUE: Contiguous axial imaging was performed from the skull base to vertex without intravenous administration of contrast. DLP: 616 mGy-cm. FINDINGS: There is no evidence of large territory infarction or hemorrhage. There is patchy and confluent hypoattenuation in the bilateral cerebral white matter compatible with small vessel ischemic changes. There is mild diffuse brain parenchymal volume loss. The ventricles are stable in size without evidence of hydrocephalus. The extracranial structures are within normal limits. There are atherosclerotic calcification of the carotid siphons and vertebral arteries. IMPRESSION: 1. In the setting of recent TPA administration there is no evidence of hemorrhage. 2. No large territory infarct or interval change is seen. 3. Moderate small vessel ischemic changes in a background of mild diffuse brain parenchymal volume loss.
[2017-06-12] MEDS ORDERED: ASPIRIN EC81 M1 PO (11:19)
[2017-06-12] MEDS ORDERED: ATORVASTATIN CA80 M1 PO (11:19)
--- NOTE | 2017-06-12 15:25 | PN- Cardiology ---
Subjective Subjective: Clinically improving; ambulating with PT today. Objective Vital Signs and I&Os Vital Signs Date Time Temp Pulse Resp B/P B/P Pulse O2 O2 Flow FiO2 Mean Ox Delivery Rate 06/12 08 99.4 75 20 142/40 96 Room Air 06/12 0400 96 Room Air 06/12 0000 98 Room Air 06/12 0000 99.7 82 24 128/66 98 Room Air 06/11 2000 95 Room Air 06/11 1600 99 Room Air 06/11 1600 100.9 94 22 158/80 99 Room Air Intake & Output 06/12 1600 06/12 0800 06/12 0000 06/11 1600 06/11 0800 06/11 0000 Intake Total 400 350 440 Output Total 300 975 396 8222 Balance 100 -175 15 -1400 Intake, Oral 400 350 440 Output, Urine 300 240 143 6345 Patient 99 lb 1.99 oz 89 lb 15.99 oz Weight Weight Bed scale Measurement Method Current Medications: Current Medications Sig/Wyatt Start time Last Medication Dose Route Stop Time Status Admin Aspirin Buffered 81 MG DAILY 06/12 1100 AC 06/12 PO 1250 Atorvastatin Calcium 80 MG 1700 06/11 1930 AC 06/11 PO 2102 Levothyroxine Sodium 0.05 MG DAILY AC 06/12 0700 AC 06/12 PO 0702 Magnesium Oxide 400 MG ONE ONE 06/12 1230 DC 06/12 PO 06/12 1231 1250 Potassium Chloride 40 MEQ ONCE ONE 06/12 1230 DC 06/12 PO 06/12 1231 1250 Results Last 48 Hrs of Labs/Mics: Laboratory Tests 06/12/17 0858: Anion Gap 13, Estimated GFR > 60, Glucose 151 H, Calcium 8.5, Phosphorus 3.3, Magnesium 1.7, Total Bilirubin 0.7, AST 20, ALT 33, Albumin 3.5, PT 12.4, INR 1.18, APTT 28, CBC w Diff NO MAN DIFF REQ, RBC 4.20, MCV 88.0, MCH 29.7, RDW 13.9, MPV 10.4, Gran % 65.8, Lymphocytes % 21.9, Monocytes % 7.6, Eosinophils % 4.0, Basophils % 0.7, Absolute Granulocytes 3.6, Absolute Lymphocytes 1.2, Absolute Monocytes 0.4, Absolute Eosinophils 0.2, Absolute Basophils 0, PUBS MCHC 33.7 06/12/17 0848: Sodium Cancelled, Potassium Cancelled, Chloride Cancelled, Carbon Dioxide Cancelled, Anion Gap Cancelled, BUN Cancelled, Creatinine Cancelled, BUN/ Creatinine Ratio Cancelled 06/12/17 0610: Sodium Cancelled, Potassium Cancelled, Chloride Cancelled, Carbon Dioxide Cancelled, Anion Gap Cancelled, BUN Cancelled, Creatinine Cancelled, Estimated GFR Cancelled, Glucose Cancelled, Calcium Cancelled, Phosphorus Cancelled, Magnesium Cancelled, Total Bilirubin Cancelled, AST Cancelled, ALT Cancelled, Albumin Cancelled, PT Cancelled, INR Cancelled, APTT Cancelled, CBC w Diff Cancelled, WBC Cancelled, RBC Cancelled, Hgb Cancelled, Hct Cancelled, MCV Cancelled, MCH Cancelled, RDW Cancelled, Plt Count Cancelled, MPV Cancelled, Gran % Cancelled, Lymphocytes % Cancelled, Monocytes % Cancelled, Eosinophils % Cancelled, Basophils % Cancelled, Absolute Granulocytes Cancelled, Absolute Lymphocytes Cancelled, Absolute Monocytes Cancelled, Absolute Eosinophils Cancelled, Absolute Basophils Cancelled, PUBS MCHC Cancelled 06/11/172044: Anion Gap 13, Estimated GFR > 60, BUN/Creatinine Ratio 26.7 H, Triglycerides 75 , Cholesterol 174, LDL Cholesterol, Calc 97, HDL Cholesterol 62 H, Cholesterol/ HDL Ratio 3, APTT 27, CBC w Diff NO MAN DIFF REQ, RBC 4.05 L, MCV 89.0, MCH 30.0, RDW 14.1, MPV 10.6 H, Gran % 62.1, Lymphocytes % 23.5, Monocytes % 10.1 H, Eosinophils % 3.8, Basophils % 0.5, Absolute Granulocytes 3.9, Absolute Lymphocytes 1.5, Absolute Monocytes 0.6, Absolute Eosinophils 0.2, Absolute Basophils 0, PUBS MCHC 33.7, Urine Color YEL, Urine Clarity HAZY H, Urine pH 7.0, Ur Specific [place] 1.010, Urine Protein TRACE H, Urine Ketones NEG, Urine Nitrite NEG, Urine Bilirubin NEG, Urine Urobilinogen 0.2, Ur Leukocyte Esterase TRACE H, Ur Microscopic SEDIMENT EXAMINED, Urine RBC >75 H, Urine WBC 1-3 H, Ur Epithelial Cells RARE, Urine Bacteria RARE H, Urine Mucus RARE, Urine Hemoglobin LARGE H, Urine Glucose NEG 06/11/17 0738: Anion Gap 14, Estimated GFR > 60, BUN/Creatinine Ratio 26.7 H, Glucose 147 H, Calcium 9.6, Total Bilirubin 0.6, AST 26, ALT 31, Alkaline Phosphatase 53, Total Protein 6.9, Albumin 4.4, Globulin 2.5, Albumin/Globulin Ratio 1.8, Free T4 1.60 , Total T3 1.11, TSH &T3 &Free T4 Intrp 4.770 H, PT 11.2, INR 1.07, APTT 27, CBC w Diff NO MAN DIFF REQ, RBC 4.49, MCV 89.0, MCH 29.9, RDW 13.6, MPV 10.8 H, Gran % 59.7, Lymphocytes % 27.4, Monocytes % 7.2, Eosinophils % 5.2 H, Basophils % 0.5, Absolute Granulocytes 2.9, Absolute Lymphocytes 1.4, Absolute Monocytes 0.4, Absolute Eosinophils 0.3, Absolute Basophils 0, PUBS MCHC 33.6 Assessment/Plan Assessment/Plan Assessment: 1. Resolving neurologic deficit c/w TIA 2. HTN 3. PVCs 4. Bilateral carotid plaque Recommendations: * Follow neurology recommendations * Check lipid profile and initiate high-dose statin therapy * Echocardiogram pending * Carotid Doppler study noted * Amlodipine is on hold to avoid hypotension in the setting of CVA * Monitor on telemetry for atrial fibrillation or other arrhythmias. Will consider possible longer term monitoring after discharge to rule out paroxysmal atrial fibrillation. Continue telemetry? Yes
[2017-06-12 16:00] VITALS: BP 132/70
--- NOTE | 2017-06-12 16:52 | ECHOCARDIOGRAM REPORT ---
DESTINI SANDOVAL Age: 86 : 1930 Gender: F Exam Date: 06/11/2017 16:55 Exam Location: [facility] Ht (in): 60 Wt (lb): 94 BSA: 1.34 BP: 128 / 70 Ordering Physician: Corie Cummings MD Referring Physician: Robert Martínez MD Technologist: Chelo Do [facility] Room Number: 112 Indications: TIA Rhythm: Sinus Technical Quality: Good FINDINGS Left Ventricle Normal size left ventricle. Normal left ventricular wall thickness. Normal left ventricular ejection fraction visually estimated at > 60%. Abnormal relaxation filling pattern of the left ventricle for age (stage 1 diastolic dysfunction). Right Ventricle Normal right ventricular size and function. Right Atrium Normal right atrial size. Left Atrium Normal left atrial size. Mitral Valve Mitral valve thickened. Mild mitral regurgitation. Aortic Valve Diffuse thickening (sclerosis) of the aortic valve cusps without reduced excursion. No aortic regurgitation. No aortic stenosis. Tricuspid Valve Tricuspid valve not well visualized, grossly normal. Mild tricuspid regurgitation. No evidence of pulmonary hypertension. Pulmonic Valve Pulmonic valve not well visualized, grossly normal. Pericardium No pericardial effusion. Great Vessels Normal size aortic root. CONCLUSIONS Normal size left ventricle. Normal left ventricular ejection fraction visually estimated at > 60%. Abnormal relaxation filling pattern of the left ventricle for age (stage 1 diastolic dysfunction). Mild tricuspid regurgitation. Mild mitral regurgitation. Robert Martínez M.D. (Electronically Signed) Final Date: 12 June 2017 16:51 MEASUREMENTS (Male / Female) Normal Values 2D ECHO LV Diastolic Diameter PLAX 3.9 cm 4.2 - 5.9 / 3.9 - 5.3 cm LV Systolic Diameter PLAX 2.4 cm 2.1 - 4.0 cm LV Fractional Shortening PLAX 38.5 % 25 - 46 % LV Ejection Fraction 2D Teich 69.4 % IVS Diastolic Thickness 1.1 cm LVPW Diastolic Thickness 0.8 cm LV Relative Wall Thickness 0.5 RV Internal Dim ED PLAX 2.8 cm 1.9 - 3.8 cm LVOT Diameter 1.9 cm Aortic Root Diameter 2.9 cm LA Systolic Diameter LX 3.4 cm 3.0 - 4.0 / 2.7 - 3.8 cm LA Volume 20.0 cm 18 - 58 / 22 - 52 cm Ascending Aorta Diameter 2.9 cm DOPPLER AV Peak Velocity 121.0 cm/s AV Peak Gradient 5.9 mmHg AV Mean Velocity 82.3 cm/s AV Mean Gradient 3.0 mmHg AV Velocity Time Integral 19.2 cm LVOT Peak Velocity 89.5 cm/s LVOT Peak Gradient 3.2 mmHg LVOT Mean Velocity 61.8 cm/s LVOT Mean Gradient 2.0 mmHg LVOT Velocity Time Integral 15.4 cm LVOT Stroke Volume 43.7 cm AV Area Cont Eq vti 2.3 cm AV Area Cont Eq pk 2.1 cm MV Peak Velocity 134.0 cm/s MV Peak Gradient 7.2 mmHg MV Mean Velocity 58.6 cm/s MV Mean Gradient 2.0 mmHg Mitral E Point Velocity 54.3 cm/s Mitral A Point Velocity 105.0 cm/s Mitral E to A Ratio 0.5 MV PHT Velocity 69.2 cm/s MV Deceleration [place] 213.0 cm/s MV Pressure Half Time 97.5 ms MV Area PHT 2.3 cm MV Deceleration Time 193.0 ms TR Peak Velocity 224.0 cm/s TR Peak Gradient 20.1 mmHg Right Atrial Pressure 5.0 mmHg Pulmonary Artery Systolic Pressu 25.1 mmHg Right Ventricular Systolic Press 25.1 mmHg PV Peak Velocity 80.0 cm/s PV Peak Gradient 2.6 mmHg PV Mean Velocity 57.0 cm/s PV Mean Gradient 2.0 mmHg PV Velocity Time Integral 12.5 cm LV E' Lateral Velocity 6.7 cm/s Mitral E to LV E' Lateral Ratio 8.1 LV E' Septal Velocity 5.3 cm/s Mitral E to LV E' Septal Ratio 10.3
[2017-06-12 22:23] LABS: ABSOLUTE BASOPHIL COUNT 0 /CUMM (0.0-0.2); ABSOLUTE EOSINOPHIL COUNT 0.4 /CUMM (0.0-0.7); ABSOLUTE GRANULOCYTE CT 4.6 /CUMM (1.4-6.5); ABSOLUTE LYMPH COUNT 1.5 /CUMM (1.2-3.4); ABSOLUTE MONOCYTE COUNT 0.7 /CUMM (0.10-0.60); BASOPHIL % 0.6 % (0.0-2.0); EOSINOPHIL % 5.1 % (0-5); HEMATOCRIT 37.5 % (37-47); MEAN CORPUSCULAR HGB 29.9 PG (27.0-31.0); MEAN CORPUSCULAR HGB CONC 33.7 G/DL (33.0-37.0); MEAN CORPUSCULAR VOLUME 88.7 FL (81.0-99.0); MEAN PLATELET VOLUME 11.3 FL (7.4-10.4); PLATELET COUNT 177 /CUMM (130-400); RBC DISTRIBUTION WIDTH 13.8 % (11.5-14.5); RED BLOOD CELL CT 4.23 /CUMM (4.20-5.40); WHITE BLOOD CELL COUNT 7.1 /CUMM (4.8-10.8)
[2017-06-12 22:37] LABS: PT 11.3 SEC (9.4-12.5)
[2017-06-13] VITALS: BP 138/72
[2017-06-13 04:58] LABS: ABSOLUTE BASOPHIL COUNT 0 /CUMM (0.0-0.2); ABSOLUTE EOSINOPHIL COUNT 0.4 /CUMM (0.0-0.7); ABSOLUTE GRANULOCYTE CT 3.3 /CUMM (1.4-6.5); ABSOLUTE LYMPH COUNT 1.4 /CUMM (1.2-3.4); ABSOLUTE MONOCYTE COUNT 0.5 /CUMM (0.10-0.60); BASOPHIL % 0.6 % (0.0-2.0); EOSINOPHIL % 6.3 % (0-5); GRANULOCYTE % 58.6 % (42.2-75.2); HEMATOCRIT 38.3 % (37-47); MEAN CORPUSCULAR HGB 30.1 PG (27.0-31.0); MEAN CORPUSCULAR VOLUME 88.6 FL (81.0-99.0); PLATELET COUNT 187 /CUMM (130-400); RBC DISTRIBUTION WIDTH 14.4 % (11.5-14.5); RED BLOOD CELL CT 4.32 /CUMM (4.20-5.40); WHITE BLOOD CELL COUNT 5.6 /CUMM (4.8-10.8)
--- NOTE | 2017-06-13 06:48 | PN- Neurology ---
Subjective Subjective: Feels well. Remains in critical care unit States she walked around the room with assist yesterday REVIEW OF SYSTEMS: (-) = negative / normal blank = not discussed Neurologic: see HPI Eyes: (-) ENT: (-) Constitutional: (-) CV: (-) Respiratory: (-) /Renal: (-) Musculoskeletal: Occasional arthralgias and back pain Skin: (-) Psychiatric: (-) Heme: (-) GI: (-) Allergy/Immune: (-) Endocrine: (-) Other: (-) Objective Vital Signs and I&Os Vital Signs Date Time Temp Pulse Resp B/P B/P Pulse O2 O2 Flow FiO2 Mean Ox Delivery Rate 06/13 0400 95 Room Air 06/13 0000 97 Room Air 06/13 0000 97.5 76 20 138/72 97 Room Air 06/12 2000 96 Room Air 06/12 1600 98.2 82 20 132/70 96 Room Air 06/12 0800 99.4 75 20 142/40 96 Room Air Intake & Output 06/13 0800 06/13 0000 06/12 1600 06/12 0800 06/12 0000 06/11 1600 Intake Total 50 720 400 350 440 Output Total 275 350 300 788 736 2861 Balance -225 370 100 -175 15 -1400 Intake, Oral 50 720 400 350 440 Output, Urine [phone] Patient 99 lb 1.99 oz Weight Weight Bed scale Measurement Method Physical Exam: Physical Exam: PHYSICAL EXAMINATION: nl = normal NT or blank = not tested GENERAL Appearance: nl Head: nl Eyes: nl ENT: nl Neck: nl Carotids: nl Lungs: nl Heart: nl Extremities: Arthritic changes in the hands NEUROLOGIC MENTAL STATUS Level of consciousness: nl Orientation: nl Attention / Concentration: nl Memory: nl Fund of Knowledge: nl Speech / Language: nl NEUROLOGIC CRANIAL NERVES I: Olfaction: NT II: Optic nerves: nl Visual pérez: nl III: Pupils: nl Levator palpebrae: nl III, IV, : Ocular alignment: nl Extraocular motility: nl Pursuits/ saccades: nl V: Facial sensation: nl Masseter/Pterygoids: nl VII: Facial Motor: nl VIII: Hearing (finger rub): nl IX, X: Uvula and palate: nl XI: SCM, Upper trap.: nl XII: Tongue: nl MOTOR / NEUROMUSCULAR Bulk: nl Tone: nl; very slight right pronator drift Strength: nl Rapid alternating movements: nl Fine motor movements: nl Abnormal / involuntary movements: none CEREBELLAR / COORDINATION: intact SENSATION: intact to light touch, joint position, vibration, temperature DTR's symmetrically trace to 1+ PLANTARS: flexor GAIT: Not tested Current Medications: Current Medications Sig/Wyatt Start time Last Medication Dose Route Stop Time Status Admin Aspirin Buffered 81 MG DAILY 06/12 1100 AC 06/12 PO 1250 Atorvastatin Calcium 80 MG 1700 06/11 1930 AC 06/12 PO 1703 Levothyroxine Sodium 0.05 MG DAILY AC 06/12 0700 AC 06/13 PO 0628 Magnesium Oxide 400 MG ONE ONE 06/12 1230 DC 06/12 PO 06/12 1231 1250 Potassium Chloride 40 MEQ ONCE ONE 06/12 1230 DC 06/12 PO 06/12 1231 1250 Results Last 24 Hours of Lab Results: Laboratory Tests 06/13 06/12 0340 2055 Chemistry Sodium (137 - 145 mmol/L) 141 139 Potassium (3.5 - 5.1 mmol/L) 4.6 5.1 Chloride (98 - 107 mmol/L) 105 104 Carbon Dioxide (22 - 30 mmol/L) 25 24 Anion Gap (5 - 16) 10 11 BUN (7 - 17 mg/dL) 16 23 H Creatinine (0.5 - 1.0 mg/dL) 0.7 0.8 Estimated GFR (>60 ml/min) > 60 > 60 Glucose (65 - 99 mg/dL) 101 H 94 Calcium (8.4 - 10.2 mg/dL) 8.9 8.8 Phosphorus (2.5 - 4.5 mg/dL) 3.5 3.5 Magnesium (1.6 - 2.3 mg/dL) 2.0 2.0 Total Bilirubin (0.2 - 1.3 mg/dL) 0.5 0.3 AST (14 - 36 U/L) 20 21 ALT (9 - 52 U/L) 31 30 Albumin (3.5 - 5.0 g/dL) 3.8 3.7 Coagulation PT (9.4 - 12.5 SEC) 11.3 INR (0.90 - 1.19) 1.08 Hematology CBC w Diff NO MAN DIFF REQ NO MAN DIFF REQ WBC (4.8 - 10.8 /CUMM) 5.6 7.1 RBC (4.20 - 5.40 /CUMM) 4.32 4.23 Hgb (12.0 - 16.0 G/DL) 13.0 12.7 Hct (37 - 47 %) 38.3 37.5 MCV (81.0 - 99.0 FL) 88.6 88.7 MCH (27.0 - 31.0 PG) 30.1 29.9 RDW (11.5 - 14.5 %) 14.4 13.8 Plt Count (130 - 400 /CUMM) 187 177 MPV (7.4 - 10.4 FL) 11.0 H 11.3 H Gran % (42.2 - 75.2 %) 58.6 64.0 Lymphocytes % (20.5 - 51.1 %) 25.2 20.7 Monocytes % (1.7 - 9.3 %) 9.3 9.6 H Eosinophils % (0 - 5 %) 6.3 H 5.1 H Basophils % (0.0 - 2.0 %) 0.6 0.6 Absolute Granulocytes (1.4 - 6.5 /CUMM) 3.3 4.6 Absolute Lymphocytes (1.2 - 3.4 /CUMM) 1.4 1.5 Absolute Monocytes (0.10 - 0.60 /CUMM) 0.5 0.7 H Absolute Eosinophils (0.0 - 0.7 /CUMM) 0.4 0.4 Absolute Basophils (0.0 - 0.2 /CUMM) 0 0 PUBS MCHC (33.0 - 37.0 G/DL) 34.0 33.7 06/12 06/12 0850 9278 Chemistry Sodium (137 - 145 mmol/L) 141 Cancelled Potassium (3.5 - 5.1 mmol/L) 3.6 Cancelled Chloride (98 - 107 mmol/L) 105 Cancelled Carbon Dioxide (22 - 30 mmol/L) 23 Cancelled Anion Gap (5 - 16) 13 Cancelled BUN (7 - 17 mg/dL) 12 Cancelled Creatinine (0.5 - 1.0 mg/dL) 0.6 Cancelled Estimated GFR (>60 ml/min) > 60 BUN/Creatinine Ratio Cancelled Glucose (65 - 99 mg/dL) 151 H Calcium (8.4 - 10.2 mg/dL) 8.5 Phosphorus (2.5 - 4.5 mg/dL) 3.3 Magnesium (1.6 - 2.3 mg/dL) 1.7 Total Bilirubin (0.2 - 1.3 mg/dL) 0.7 AST (14 - 36 U/L) 20 ALT (9 - 52 U/L) 33 Albumin (3.5 - 5.0 g/dL) 3.5 Coagulation PT (9.4 - 12.5 SEC) 12.4 INR (0.90 - 1.19) 1.18 APTT (25 - 37 SEC) 28 Hematology CBC w Diff NO MAN DIFF REQ WBC (4.8 - 10.8 /CUMM) 5.5 RBC (4.20 - 5.40 /CUMM) 4.20 Hgb (12.0 - 16.0 G/DL) 12.4 Hct (37 - 47 %) 37.0 MCV (81.0 - 99.0 FL) 88.0 MCH (27.0 - 31.0 PG) 29.7 RDW (11.5 - 14.5 %) 13.9 Plt Count (130 - 400 /CUMM) 184 MPV (7.4 - 10.4 FL) 10.4 Gran % (42.2 - 75.2 %) 65.8 Lymphocytes % (20.5 - 51.1 %) 21.9 Monocytes % (1.7 - 9.3 %) 7.6 Eosinophils % (0 - 5 %) 4.0 Basophils % (0.0 - 2.0 %) 0.7 Absolute Granulocytes (1.4 - 6.5 /CUMM) 3.6 Absolute Lymphocytes (1.2 - 3.4 /CUMM) 1.2 Absolute Monocytes (0.10 - 0.60 /CUMM) 0.4 Absolute Eosinophils (0.0 - 0.7 /CUMM) 0.2 Absolute Basophils (0.0 - 0.2 /CUMM) 0 PUBS MCHC (33.0 - 37.0 G/DL) 33.7 Recent Imaging Studies: PATIENT: DESTINI SANDOVAL PRESENT AGE: 86 PATIENT ACCOUNT NO: [id number] : 30 LOCATION: [facility] ORDERING PHYSICIAN: Corie Cummings MD SERVICE DATE: 06/12/17 EXAM TYPE: CAT - CT HEAD WO IV CONTRAST EXAMINATION: CT HEAD WITHOUT CONTRAST CLINICAL INFORMATION: 24 hours status post TPA. COMPARISON: Head CTA 06/11/2017. TECHNIQUE: Contiguous axial imaging was performed from the skull base to vertex without intravenous administration of contrast. DLP: 616 mGy-cm. FINDINGS: There is no evidence of large territory infarction or hemorrhage. There is patchy and confluent hypoattenuation in the bilateral cerebral white matter compatible with small vessel ischemic changes. There is mild diffuse brain parenchymal volume loss. The ventricles are stable in size without evidence of hydrocephalus. The extracranial structures are within normal limits. There are atherosclerotic calcification of the carotid siphons and vertebral arteries. IMPRESSION: 1. In the setting of recent TPA administration there is no evidence of hemorrhage. 2. No large territory infarct or interval change is seen. 3. Moderate small vessel ischemic changes in a background of mild diffuse brain parenchymal volume loss. DICTATED BY: Joseph Astorga MD DATE/TIME DICTATED:06/12/17923 TRAUMA PROGRAM MANAGER:JUAN DATE/TIME TRANSCRIBED:06/12/17923 CONFIDENTIAL, DO NOT COPY WITHOUT APPROPRIATE AUTHORIZATION. <Electronically signed in Other Vendor System> SIGNED BY: Joseph Astorga MD 06/12/17 0934 PATIENT: DESTINI SANDOVAL PRESENT AGE: 86 PATIENT ACCOUNT NO: [id number] : 30 LOCATION: [facility] ORDERING PHYSICIAN: Junito Acosta MD SERVICE DATE: 06/11/17- EXAM TYPE: US - [id number] DOPPLER EXAMINATION: DUPLEX BILATERAL CAROTID ULTRASOUND CLINICAL INFORMATION: TIA versus stroke. COMPARISON: Carotid ultrasound 11/05/2011 TECHNIQUE: Duplex bilateral carotid US was performed using real-time ultrasound and Doppler techniques (integrating B-mode 2D vascular images, Doppler spectral analysis and color flow Doppler imaging). These techniques were utilized to interrogate the extracranial carotid and vertebral arteries bilaterally. The degree of stenosis is based off criteria similar to NASCET. FINDINGS: 1. On the right: Echogenic plaque is present at the carotid bifurcation but velocity measurements are normal and do not suggest a stenosis of greater than 50% diameter reduction in the right ICA. The vertebral artery is patent demonstrating antegrade flow. 2. On the left: Echogenic plaque is present at the carotid bifurcation but velocity measurements are normal and do not suggest a stenosis of greater than 50% diameter reduction in the left ICA. The vertebral artery is patent demonstrating antegrade flow. The external carotid arteries appear unremarkable. IMPRESSION: Plaque is present in the internal carotid arteries but velocity measurements are normal and there is no evidence to suggest a hemodynamically significant stenosis of greater than 50% diameter reduction. DICTATED BY: Waylon POLO,Alpesh Rollins DATE/TIME DICTATED:06/12/17747 TRAUMA PROGRAM MANAGER:JUAN DATE/TIME TRANSCRIBED:06/12/17747 FINDINGS Left Ventricle Normal size left ventricle. Normal left ventricular wall thickness. Normal left ventricular ejection fraction visually estimated at > 60%. Abnormal relaxation filling pattern of the left ventricle for age (stage 1 diastolic dysfunction). Right Ventricle Normal right ventricular size and function. Right Atrium Normal right atrial size. Left Atrium Normal left atrial size. Mitral Valve Mitral valve thickened. Mild mitral regurgitation. Aortic Valve Diffuse thickening (sclerosis) of the aortic valve cusps without reduced excursion. No aortic regurgitation. No aortic stenosis. Tricuspid Valve Tricuspid valve not well visualized, grossly normal. Mild tricuspid regurgitation. No evidence of pulmonary hypertension. Pulmonic Valve Pulmonic valve not well visualized, grossly normal. Pericardium No pericardial effusion. Great Vessels Normal size aortic root. CONCLUSIONS Normal size left ventricle. Normal left ventricular ejection fraction visually estimated at > 60%. Abnormal relaxation filling pattern of the left ventricle for age (stage 1 diastolic dysfunction). Mild tricuspid regurgitation. Mild mitral regurgitation. Robert Martínez M.D. 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
--- NOTE | 2017-06-13 07:43 | PN- Cardiology ---
Subjective Subjective: clinically stable. No new cardiac issues. Objective Vital Signs and I&Os Vital Signs Date Time Temp Pulse Resp B/P B/P Pulse O2 O2 Flow FiO2 Mean Ox Delivery Rate 06/13 0400 95 Room Air 06/13 0000 97 Room Air 06/13 0000 97.5 76 20 138/72 97 Room Air 06/12 2000 96 Room Air 06/12 1600 98.2 82 20 132/70 96 Room Air 06/12 0800 99.4 75 20 142/40 96 Room Air Intake & Output 06/13 0800 06/13 0000 06/12 1600 06/12 0800 06/12 0000 06/11 1600 Intake Total 50 720 400 350 440 Output Total 275 350 300 078 584 4518 Balance -225 370 100 -175 15 -1400 Intake, Oral 50 720 400 350 440 Output, Urine 275 350 300 636 998 3402 Patient 99 lb 1.99 oz Weight Weight Bed scale Measurement Method Current Medications: Current Medications Sig/Wyatt Start time Last Medication Dose Route Stop Time Status Admin Aspirin Buffered 81 MG DAILY 06/12 1100 AC 06/12 PO 1250 Atorvastatin Calcium 80 MG 1700 06/11 1930 AC 06/12 PO 1703 Levothyroxine Sodium 0.05 MG DAILY AC 06/12 0700 AC 06/13 PO 0628 Magnesium Oxide 400 MG ONE ONE 06/12 1230 DC 06/12 PO 06/12 1231 1250 Potassium Chloride 40 MEQ ONCE ONE 06/12 1230 DC 06/12 PO 06/12 1231 1250 Results Last 48 Hrs of Labs/Mics: Laboratory Tests 06/13/17 0340: Anion Gap 10, Estimated GFR > 60, Glucose 101 H, Calcium 8.9, Phosphorus 3.5, Magnesium 2.0, Total Bilirubin 0.5, AST 20, ALT 31, Albumin 3.8, CBC w Diff NO MAN DIFF REQ, RBC 4.32, MCV 88.6, MCH 30.1, RDW 14.4, MPV 11.0 H, Gran % 58.6, Lymphocytes % 25.2, Monocytes % 9.3, Eosinophils % 6.3 H, Basophils % 0.6, Absolute Granulocytes 3.3, Absolute Lymphocytes 1.4, Absolute Monocytes 0.5, Absolute Eosinophils 0.4, Absolute Basophils 0, PUBS MCHC 34.0 06/12/172054: Anion Gap 11, Estimated GFR > 60, Glucose 94, Calcium 8.8, Phosphorus 3.5, Magnesium 2.0, Total Bilirubin 0.3, AST 21, ALT 30, Albumin 3.7, PT 11.3, INR 1.08, CBC w Diff NO MAN DIFF REQ, RBC 4.23, MCV 88.7, MCH 29.9, RDW 13.8, MPV 11.3 H, Gran % 64.0, Lymphocytes % 20.7, Monocytes % 9.6 H, Eosinophils % 5.1 H, Basophils % 0.6, Absolute Granulocytes 4.6, Absolute Lymphocytes 1.5, Absolute Monocytes 0.7 H, Absolute Eosinophils 0.4, Absolute Basophils 0, [facility] 33.7 06/12/17 0858: Anion Gap 13, Estimated GFR > 60, Glucose 151 H, Calcium 8.5, Phosphorus 3.3, Magnesium 1.7, Total Bilirubin 0.7, AST 20, ALT 33, Albumin 3.5, PT 12.4, INR 1.18, APTT 28, CBC w Diff NO MAN DIFF REQ, RBC 4.20, MCV 88.0, MCH 29.7, RDW 13.9, MPV 10.4, Gran % 65.8, Lymphocytes % 21.9, Monocytes % 7.6, Eosinophils % 4.0, Basophils % 0.7, Absolute Granulocytes 3.6, Absolute Lymphocytes 1.2, Absolute Monocytes 0.4, Absolute Eosinophils 0.2, Absolute Basophils 0, [facility] 33.7 06/12/17 0848: Sodium Cancelled, Potassium Cancelled, Chloride Cancelled, Carbon Dioxide Cancelled, Anion Gap Cancelled, BUN Cancelled, Creatinine Cancelled, BUN/ Creatinine Ratio Cancelled 06/12/17 0610: Sodium Cancelled, Potassium Cancelled, Chloride Cancelled, Carbon Dioxide Cancelled, Anion Gap Cancelled, BUN Cancelled, Creatinine Cancelled, Estimated GFR Cancelled, Glucose Cancelled, Calcium Cancelled, Phosphorus Cancelled, Magnesium Cancelled, Total Bilirubin Cancelled, AST Cancelled, ALT Cancelled, Albumin Cancelled, PT Cancelled, INR Cancelled, APTT Cancelled, CBC w Diff Cancelled, WBC Cancelled, RBC Cancelled, Hgb Cancelled, Hct Cancelled, MCV Cancelled, MCH Cancelled, RDW Cancelled, Plt Count Cancelled, MPV Cancelled, Gran % Cancelled, Lymphocytes % Cancelled, Monocytes % Cancelled, Eosinophils % Cancelled, Basophils % Cancelled, Absolute Granulocytes Cancelled, Absolute Lymphocytes Cancelled, Absolute Monocytes Cancelled, Absolute Eosinophils Cancelled, Absolute Basophils Cancelled, PUBS MCHC Cancelled 06/11/172044: Anion Gap 13, Estimated GFR > 60, BUN/Creatinine Ratio 26.7 H, Triglycerides 75 , Cholesterol 174, LDL Cholesterol, Calc 97, HDL Cholesterol 62 H, Cholesterol/ HDL Ratio 3, APTT 27, CBC w Diff NO MAN DIFF REQ, RBC 4.05 L, MCV 89.0, MCH 30.0, RDW 14.1, MPV 10.6 H, Gran % 62.1, Lymphocytes % 23.5, Monocytes % 10.1 H, Eosinophils % 3.8, Basophils % 0.5, Absolute Granulocytes 3.9, Absolute Lymphocytes 1.5, Absolute Monocytes 0.6, Absolute Eosinophils 0.2, Absolute Basophils 0, PUBS MCHC 33.7, Urine Color YEL, Urine Clarity HAZY H, Urine pH 7.0, Ur Specific [place] 1.010, Urine Protein TRACE H, Urine Ketones NEG, Urine Nitrite NEG, Urine Bilirubin NEG, Urine Urobilinogen 0.2, Ur Leukocyte Esterase TRACE H, Ur Microscopic SEDIMENT EXAMINED, Urine RBC >75 H, Urine WBC 1-3 H, Ur Epithelial Cells RARE, Urine Bacteria RARE H, Urine Mucus RARE, Urine Hemoglobin LARGE H, Urine Glucose NEG Assessment/Plan Assessment/Plan Assessment: 1. Resolving neurologic deficit c/w TIA 2. HTN 3. PVCs 4. Bilateral carotid plaque Recommendations: * Follow neurology recommendations * Check lipid profile and initiate high-dose statin therapy * Carotid Doppler study noted Echocardiogram without any evidence of cardioembolic sources. No evidence of any recent arrhythmias. Stable for transfer to telemetry. Continue telemetry? Yes
[2017-06-13 08:00] VITALS: BP 150/60
--- NOTE | 2017-06-13 08:28 | Patient Discharge Instructions ---
Discharge Instructions General Discharge Information You were seen/treated for: - Stroke Watch for these problems: - seizures - weakness of upper or lower extemities - slurred speech - deviation of face - loss of bladder or bowel function Special Instructions: - Please see your PCP within one week of discharge. - Please follow up with your neurologist within one week of discharge - Please take your medications as prescribed. - If you have any worsening of symptoms, please see MD immediately. Acute Coronary Syndrome Inclusion Criteria At DC or during hospital stay patient has or had the following: ACS DIAGNOSIS No Discharge Core Measures Meds if any: Prescribed or Continued at Discharge Meds if any: NOT Prescribed or Continued at Discharge Congestive Heart Failure Inclusion Criteria At DC or during hospital stay patient has or had the following: CHF DIAGNOSIS No Discharge Core Measures Meds if any: Prescribed or Continued at Discharge Meds if any: NOT Prescribed or Continued at Discharge Cerebrovascular accident Inclusion Criteria At DC or during hospital stay patient has or had the following: CVA/TIA Diagnosis Yes Discharge Core Measures Meds if any: Prescribed or Continued at Discharge Antithrombotic Yes Statin (required if LDL =>70) Yes Anticoagulant Yes Meds if any: NOT Prescribed or Continued at Discharge Venous thromboembolism Inclusion Criteria VTE Diagnosis No VTE Type NONE VTE Confirmed by (Test) NONE Discharge Core Measures - Per Current guidelines, there needs to be overlap - treatment for the first 5 days of Warfarin therapy. - If discharged on Warfarin prior to 5 days of - overlap therapy, the patient will need to be - assessed for post discharge needs including - *Post discharge parental anticoagulation - *Warfarin and/or parental anticoagulation education - *Follow up date to check INR post discharge At least 5 days overlap therapy as Inpatient No Meds if any: Prescribed or Continued at Discharge Note: Overlap Therapy is Warfarin and Anticoagulant Meds if any: NOT Prescribed or Continued at Discharge
--- NOTE | 2017-06-13 08:51 | PN- Resident CRCU ---
Subjective HPI/CRCU Issues: CVA s/p tPA 24 Hour Events: Repeat CT head showed no ICH. Patient has remained hemodynamically stable. No active issues. Stable to be downgraded to tele. Objective Vital Signs & I&O Last 8 Hrs of Vitals and I&O: . Exam General Appearance: well developed/nourished, no apparent distress, alert, awake , comfortable Head: atraumatic, normal appearance Respiratory: normal breath sounds, chest non-tender, lungs clear Cardiovascular: regular rate/rhythm Gastrointestinal: soft, non-tender Extremities: no edema Cranial Nerves: normal hearing, normal speech, 3-12 grossly intact. Skin: intact, warm/dry Skin Temp/Moisture Exam: Warm/Dry Sepsis Skin Exam (color): Normal for Ethnicity Current Medications: Current Medications Sig/Wyatt Start time Last Medication Dose Route Stop Time Status Admin Aspirin Buffered 81 MG DAILY 06/12 1100 AC 06/13 PO 0912 Atorvastatin Calcium 80 MG 1700 06/11 1930 AC 06/12 PO 1703 Levothyroxine Sodium 0.05 MG DAILY AC 06/12 0700 AC 06/13 PO 0628 Impression/Plan Impression/Problem List Impression: 86 year old woman with PMH hypertension, hypothyroidism, previous TIA in 2011 brought in by son for upper and lower right sided weakness, slurred speech and unsteady gait which started around 6:30am this morning, her symptoms have currently resolved. Problem List: 1. CVA s/p tPA 2. History of Hypertension Plan: * Stable to be down graded to telemetry * She had tPA on admission 06/11. Repeat CT head (post tPA) 06/12 showed no evidence of hemorrhage or infarct. But does show some moderate small vessel ischemic changes in a background of mild diffuse brain parenchymal volume loss. * Will continue on Aspirin EC 81mg. * If unable to tolerate will switch to Plavix 75mg. * Continue statin. * Will hold Amlodipine. * Goal BP to keep systolic below 180mm Hg as the patient received tPA. * Carotid Doppler does reveal plaque but <50% stenosis. * Echocardiogram shows EF >60% and stage I diastolic dysfunction. * Continue PT/OT * Continue Synthroid. * Diet: Heart Healthy * DVT Prophylaxis: ALPS * Code: Full Problem List: 1. CVA (cerebral vascular accident) Pain Ratin Tomorrow's Labs & Rationales: BEP Plan DVT/Prophylaxis: mechanical
[2017-06-13 16:00] VITALS: BP 130/80
[2017-06-14] VITALS: BP 120/60
[2017-06-14 05:07] LABS: ABSOLUTE BASOPHIL COUNT 0 /CUMM (0.0-0.2); ABSOLUTE EOSINOPHIL COUNT 0.4 /CUMM (0.0-0.7); ABSOLUTE GRANULOCYTE CT 5.8 /CUMM (1.4-6.5); ABSOLUTE LYMPH COUNT 1.7 /CUMM (1.2-3.4); ABSOLUTE MONOCYTE COUNT 0.8 /CUMM (0.10-0.60); BASOPHIL % 0.5 % (0.0-2.0); EOSINOPHIL % 4.9 % (0-5); GRANULOCYTE % 66.7 % (42.2-75.2); HEMATOCRIT 38.7 % (37-47); MEAN CORPUSCULAR HGB 29.8 PG (27.0-31.0); MEAN CORPUSCULAR HGB CONC 33.4 G/DL (33.0-37.0); MEAN CORPUSCULAR VOLUME 89.1 FL (81.0-99.0); MEAN PLATELET VOLUME 11.4 FL (7.4-10.4); PLATELET COUNT 199 /CUMM (130-400); RBC DISTRIBUTION WIDTH 14.1 % (11.5-14.5); RED BLOOD CELL CT 4.35 /CUMM (4.20-5.40)
[2017-06-14 05:13] LABS: WHITE BLOOD CELL COUNT 8.8 /CUMM (4.8-10.8)
--- NOTE | 2017-06-14 07:08 | PN- Resident CRCU ---
Subjective HPI/CRCU Issues: CVA s/p tPA 24 Hour Events: No issues overnight. Slept comfortably. Working well with physical therapist. Offers no complaints. Objective Vital Signs & I&O Last 8 Hrs of Vitals and I&O: Intake & Output 06/14 1600 Intake Total Output Total Balance Patient 99 lb 1.99 oz Weight Exam General Appearance: well developed/nourished, no apparent distress, alert, awake , comfortable Head: atraumatic, normal appearance Respiratory: normal breath sounds, chest non-tender, lungs clear Cardiovascular: regular rate/rhythm Gastrointestinal: soft, non-tender Extremities: no edema Cranial Nerves: 3-12 grossly intact Skin: intact Skin Temp/Moisture Exam: Warm/Dry Sepsis Skin Exam (color): Normal for Ethnicity Current Medications: Current Medications Sig/Wyatt Start time Last Medication Dose Route Stop Time Status Admin Aspirin Buffered 81 MG DAILY 06/12 1100 AC 06/14 PO 1003 Atorvastatin Calcium 40 MG 1700 06/14 1700 AC PO Atorvastatin Calcium 80 MG 1700 06/11 1930 DC 06/13 PO 1721 Docusate Sodium 100 MG DAILY NEEDED PRN 06/14 0900 AC 06/14 PO 1003 Levothyroxine Sodium 0.05 MG DAILY AC 06/12 0700 AC 06/14 PO 0601 Polyethylene Glycol 17 GM DAILY 06/14 1000 AC 06/14 PO 1003 Senna 187 MG AT BEDTIME 06/14 2200 AC PO Impression/Plan Impression/Problem List Impression: 86 year old woman with PMH hypertension, hypothyroidism, previous TIA in 2011 brought in by son for upper and lower right sided weakness, slurred speech and unsteady gait which started around 6:30am this morning, her symptoms have currently resolved. Problem List: 1. CVA s/p tPA 2. History of Hypertension Plan: * Stable to be discharged. * She had tPA on admission 06/11. Repeat CT head (post tPA) 06/12 showed no evidence of hemorrhage or infarct. But does show some moderate small vessel ischemic changes in a background of mild diffuse brain parenchymal volume loss. * Will continue on Aspirin EC 81mg. * Continue atorvastatin 40mg. * Will hold Amlodipine. She can restart this at home. * Goal BP to keep systolic below 180mm Hg as the patient received tPA. * Carotid Doppler does reveal plaque but <50% stenosis. * Echocardiogram shows EF >60% and stage I diastolic dysfunction. * Continue PT/OT * Continue Synthroid. * Diet: Heart Healthy * DVT Prophylaxis: ALPS * Code: Full Problem List: 1. CVA (cerebral vascular accident) Pain Ratin Tomorrow's Labs & Rationales: none Plan DVT/Prophylaxis: mechanical
[2017-06-14 08:00] VITALS: BP 124/60
[2017-06-14] MEDS ORDERED: LIPITOR40 M1 PO ×2 (08:23→10:40)
[2017-06-14] MEDS ORDERED: ASPIRIN EC81 M1 PO (10:40)
--- NOTE | 2017-06-14 11:09 | Discharge Summary ---
Visit Information Visit Dates Admission Date: 06/11/17 Discharge Date: 06/14/17 Hospital Course Course Attending Physician: Laurita Diane MD Primary Care Physician: Shantelle Vega APRN Hospital Course: Ms Cantrell is a 86 year old woman with PMH of hypertension, hypothyroidism who was brought in to the ER after she was noted to have right sided weakness. Below is a list for which was admitted and treated for: Ischemic Stroke: Prior to presenting to the ED, the patient reported feeling weakness in her right hand which progressively worsened and she was unable to move her right foot. A CTA scan head in the ED showed no acute intracranial large artery occlusion. She was deemed a candidate for tPA which she received. Patient reported resolution of her symptoms post tPA. Her amlodipine was put on hold to all for permissive hypertension (goal BP <180mm systolic). Her CT head 24 hours after tPA did not show any evidence of ICH or bleeding and thus, she was started on Aspirin 81mg along with hgih intensity statin. She underwent a carotid doppler study which revealed bilateral plaque (<50% stenosis). She was monitored on telemetry for paroxysmal atrial fibrillation or other arrhythmias. Echocardiogram was without any evidence of cardioembolic sources. She was discharged in stable disposition with recommendations to follow up with her Neurologist within one week of discharge. History of Hypertension: Amlodipine was kept on hold to allow permissive hypertension. History of Hypothyroidism: Continued on home dose of Synthroid. DVT Prophylaxis: ALPS Allergies: Coded Allergies: aspirin (G.I. UPSET 06/11/17) Significant Procedures: SERVICE DATE: 06/12/17 EXAM TYPE: CAT - CT HEAD WO IV CONTRAST FINDINGS: There is no evidence of large territory infarction or hemorrhage. There is patchy and confluent hypoattenuation in the bilateral cerebral white matter compatible with small vessel ischemic changes. There is mild diffuse brain parenchymal volume loss. The ventricles are stable in size without evidence of hydrocephalus. The extracranial structures are within normal limits. There are atherosclerotic calcification of the carotid siphons and vertebral arteries. IMPRESSION: 1. In the setting of recent TPA administration there is no evidence of hemorrhage. 2. No large territory infarct or interval change is seen. 3. Moderate small vessel ischemic changes in a background of mild diffuse brain parenchymal volume loss. SERVICE DATE: 06/11/17 EXAM TYPE: CAT - CT HEAD ANGIOGRAM FINDINGS: Brain: No intracranial mass, hemorrhage, extra-axial collection, or midline shift is apparent. No pathologic intra-axial enhancement is visualized. Fairly extensive chronic microvascular ischemic changes are noted throughout the brain with decreased perfusion in the left basal ganglia that is suspected to be chronic. Diffuse chronic volume loss is approximately stable. Mild mucosal thickening is noted in the left maxillary sinus. Brain CTA: There is saccular and fusiform ectasia of both distal cervical ICAs with associated tortuosity. 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 There is normal opacification of major intracranial arteries. There is moderate atherosclerotic irregularity of both cavernous carotid arteries. No focal flow-limiting stenosis, discrete proximal large artery occlusion, or saccular intradural aneurysm is identified. Timing of the contrast allows assessment of the major dural venous sinuses, which all opacify normally. IMPRESSION: No acute intracranial large artery occlusion is identified. The appearance of both distal cervical ICAs is abnormal and suggests sequelae of chronic fibromuscular dysplasia, although these vessels are incompletely assessed on this dedicated brain CTA. SERVICE DATE: 06/11/17 EXAM TYPE: RAD - XRY-PORTABLE CHEST XRAY FINDINGS: Lung volumes are symmetric. No focal consolidation is seen. No evidence of pneumothorax, pleural effusion, or pulmonary edema. The cardiomediastinal contour is unremarkable. No acute osseous findings are seen. IMPRESSION: No acute cardiopulmonary findings. SERVICE DATE: 06/11/17- EXAM TYPE: CARD - ECHOCARDIOGRAM FINDINGS Left Ventricle Normal size left ventricle. Normal left ventricular wall thickness. Normal left ventricular ejection fraction visually estimated at > 60%. Abnormal relaxation filling pattern of the left ventricle for age (stage 1 diastolic dysfunction). Right Ventricle Normal right ventricular size and function. Right Atrium Normal right atrial size. Left Atrium Normal left atrial size. Mitral Valve Mitral valve thickened. Mild mitral regurgitation. Aortic Valve Diffuse thickening (sclerosis) of the aortic valve cusps without reduced excursion. No aortic regurgitation. No aortic stenosis. Tricuspid Valve Tricuspid valve not well visualized, grossly normal. Mild tricuspid regurgitation. No evidence of pulmonary hypertension. Pulmonic Valve Pulmonic valve not well visualized, grossly normal. Pericardium No pericardial effusion. Great Vessels Normal size aortic root. CONCLUSIONS Normal size left ventricle. Normal left ventricular ejection fraction visually estimated at > 60%. Abnormal relaxation filling pattern of the left ventricle for age (stage 1 diastolic dysfunction). Mild tricuspid regurgitation. Mild mitral regurgitation. Robert R. Tanya M.D. SERVICE DATE: 06/11/17- EXAM TYPE: US - [id number] DOPPLER FINDINGS: 1. On the right: Echogenic plaque is present at the carotid bifurcation but velocity measurements are normal and do not suggest a stenosis of greater than 50% diameter reduction in the right ICA. The vertebral artery is patent demonstrating antegrade flow. 2. On the left: Echogenic plaque is present at the carotid bifurcation but velocity measurements are normal and do not suggest a stenosis of greater than 50% diameter reduction in the left ICA. The vertebral artery is patent demonstrating antegrade flow. The external carotid arteries appear unremarkable. IMPRESSION: Plaque is present in the internal carotid arteries but velocity measurements are normal and there is no evidence to suggest a hemodynamically significant stenosis of greater than 50% diameter reduction. Disposition Summary Disposition Principal Diagnosis: Ischemic Stroke Additional Diagnosis: Hypertension Hypothyroidism Discharge Disposition: home health services Discharge Instructions General Discharge Information Code Status: Full Code Patient's Diet: Heart Healthy Patient's Activity: As tolerated Follow-Up Instructions/Appts: Please follow up with your PCP, c.o.d. clerk and Neurologist within one week of discharge. Medications at Discharge Discharge Medications: Continue taking these medications: Cholecalciferol (Vitamin D3) (Vitamin D3) 1,000 UNIT CAPSULE 1 Capsule ORAL DAILY Vitamin B Complex (Vitamin B Complex) 1 EACH CAPSULE 1 Capsule ORAL DAILY Amlodipine Besylate (Amlodipine Besylate) 10 MG TABLET 1 Tablet ORAL DAILY Qty = 90 Levothyroxine Sodium (Levothyroxine Sodium) 50 MCG TABLET 1 Tablet ORAL DAILY Qty = 90 Comments: Last Taken:06/14/17 Time:6AM Start taking the following new medications: Atorvastatin Calcium (Lipitor) 40 MG TABLET 1 Tablet ORAL DAILY Qty = 90 No Refills Comments: Last Taken:06/13/17 Time:5PM-PT TOOK 80MG Aspirin (Ecotrin*) 81 MG TABLET. 81 Milligram ORAL DAILY Qty = 30 No Refills Comments: Last Taken:06/14/17 Time:10AM Copies To: Shantelle Vega APRN
--- NOTE | 2017-06-14 12:37 | PN- Cardiology ---
Objective Vital Signs and I&Os Vital Signs Date Time Temp Pulse Resp B/P B/P Pulse O2 O2 Flow FiO2 Mean Ox Delivery Rate 06/14 0800 96 Room Air Room Air 06/14 0800 98.4 86 18 124/60 96 Room Air Room Air 06/14 0000 95 Room Air 06/14 0000 97.8 90 18 120/60 95 Room Air 06/13 1600 98.5 83 20 130/80 96 Room Air Intake & Output 06/14 1600 06/14 0800 06/14 0000 06/13 1600 06/13 0800 06/13 0000 Intake Total 100 240 960 50 720 Output Total 400 500 275 350 Balance 100 -160 460 -225 370 Intake, Oral 100 240 960 50 720 Output, Urine 400 500 275 350 Patient 99 lb 1.99 oz Weight Current Medications: Current Medications Sig/Wyatt Start time Last Medication Dose Route Stop Time Status Admin Aspirin Buffered 81 MG DAILY 06/12 1100 AC 06/14 PO 1003 Atorvastatin Calcium 40 MG 1700 06/14 1700 AC PO Atorvastatin Calcium 80 MG 1700 06/11 1930 DC 06/13 PO 1721 Docusate Sodium 100 MG DAILY NEEDED PRN 06/14 0900 AC 06/14 PO 1003 Levothyroxine Sodium 0.05 MG DAILY AC 06/12 0700 AC 06/14 PO 0601 Polyethylene Glycol 17 GM DAILY 06/14 1000 AC 06/14 PO 1003 Senna 187 MG AT BEDTIME 06/14 2200 AC PO Results Last 48 Hrs of Labs/Mics: Laboratory Tests 06/14/17 0400: Anion Gap 11, Estimated GFR > 60, BUN/Creatinine Ratio 25.0, CBC w Diff NO MAN DIFF REQ, RBC 4.35, MCV 89.1, MCH 29.8, RDW 14.1, MPV 11.4 H, Gran % 66.7, Lymphocytes % 18.9 L, Monocytes % 9.0, Eosinophils % 4.9, Basophils % 0.5, Absolute Granulocytes 5.8, Absolute Lymphocytes 1.7, Absolute Monocytes 0.8 H, Absolute Eosinophils 0.4, Absolute Basophils 0, PUBS MCHC 33.4 06/13/17 0340: Anion Gap 10, Estimated GFR > 60, Glucose 101 H, Calcium 8.9, Phosphorus 3.5, Magnesium 2.0, Total Bilirubin 0.5, AST 20, ALT 31, Albumin 3.8, CBC w Diff NO MAN DIFF REQ, RBC 4.32, MCV 88.6, MCH 30.1, RDW 14.4, MPV 11.0 H, Gran % 58.6, Lymphocytes % 25.2, Monocytes % 9.3, Eosinophils % 6.3 H, Basophils % 0.6, Absolute Granulocytes 3.3, Absolute Lymphocytes 1.4, Absolute Monocytes 0.5, Absolute Eosinophils 0.4, Absolute Basophils 0, PUBS MCHC 34.0 06/12/172054: Anion Gap 11, Estimated GFR > 60, Glucose 94, Calcium 8.8, Phosphorus 3.5, Magnesium 2.0, Total Bilirubin 0.3, AST 21, ALT 30, Albumin 3.7, PT 11.3, INR 1.08, CBC w Diff NO MAN DIFF REQ, RBC 4.23, MCV 88.7, MCH 29.9, RDW 13.8, MPV 11.3 H, Gran % 64.0, Lymphocytes % 20.7, Monocytes % 9.6 H, Eosinophils % 5.1 H, Basophils % 0.6, Absolute Granulocytes 4.6, Absolute Lymphocytes 1.5, Absolute Monocytes 0.7 H, Absolute Eosinophils 0.4, Absolute Basophils 0, PUBS MCHC 33.7 Assessment/Plan Assessment/Plan Assessment: 1. Resolving neurologic deficit c/w TIA 2. HTN 3. PVCs 4. Bilateral carotid plaque Recommendations: * Follow neurology recommendations * Continue statin * Carotid Doppler study noted Echocardiogram without any evidence of cardioembolic sources. No evidence of any recent arrhythmias. From a cardiac perspective, the patient should be stable for discharge. Outpatient followup with Dr. Martínez and event monitoring at that time. Continue telemetry? Yes
== END 2017-06-14 13:05 | disposition home health service (06) | DRG 62 ==
LOC: ERH 06:48 → ERHI 11:25 → CRI 11:25 → ENRESERV 12:56 → ENTRNSPT 13:56 → EDTRNSPTSTS 14:02 → CMPTRNSPT 14:09 → CRI 14:10 → ENTRNSPT 06-14 12:44 → EDTRNSPT 06-14 12:50 → EDTRNSPTSTS 06-14 12:50 → CRI 06-14 13:05 → CMPTRNSPT 06-14 13:08
PROVIDERS: Emergency Medicine; Internal Medicine; Internal Medicine Endocrinology, Diabetes & Metabolism; Internal Medicine Pulmonary Disease
DX: I63.9 Cerebral infarction, unspecified (principal); G81.91 Hemiplegia, unspecified affecting right dominant side; I67.1 Cerebral aneurysm, nonruptured; E03.9 Hypothyroidism, unspecified; I10 Essential (primary) hypertension; I49.3 Ventricular premature depolarization; G89.29 Other chronic pain; M54.9 Dorsalgia, unspecified; M19.90 Unspecified osteoarthritis, unspecified site; Z87.891 Personal history of nicotine dependence; I65.23 Occlusion and stenosis of bilateral carotid arteries
CPT/HCPCS: CCU; 36415; 71045; 81001; 82436; 87086; 93005; 93010; 93306; 96365; 97110-GO; 97116-GO; 97161-GP; 97165-GO; 97530-GO; 99291; J3490

== ENCOUNTER → 2017-09-11 | Day surgery (SDC) | payer OTHER, MEDICARE ==
[~2017-09-11] VITALS: Ht 152.4 cm; Wt 44.5 kg
[~2017-09-11] MED LIST changes: +AMLODIPINE BESY10 M1 PO; +ASPIRIN EC81 M1 PO; +ATORVASTATIN CA80 M1 PO; +LEVOTHYROXINE50 MCG PO; +LIPITOR40 M1 PO
--- NOTE | 2017-09-11 09:07 | Operative Report ---
See Addendum Operative/Inv Procedure Report Surgery Date: 09/11/17 Name of Procedure: Cataract extraction lens implantation right eye Pre-Operative Diagnosis: Age-related cataract right eye 20/30 vision 20/70 glare vision Post-Operative Diagnosis: Same Estimated Blood Loss: none Surgeon/Paratransit Operator: Diony Pennington MD Anesthesia: local monitored anesthesi Operative/Procedure Note Note: The patient was brought to the operating room standard monitoring equipment was attached the patient was prepped and draped in the usual fashion for intraocular surgery. A lid speculum was placed to retract the lids. The case was begun by making a temporal incision with a 2.4 mm keratome. The eye was stabilized with a Brito ring during this incision. 1 mL of non-preserved lidocaine was introduced into the anterior chamber to provide anesthesia. The anterior chamber was then filled and deepened with viscoelastic. A curvilinear capsulorrhexis was achieved using a 30-gauge needle and is a cystotome and capsulorrhexis was finished using a Utrata forceps. A second or paracentesis incision was made temporally with a 1 mm MVR blade. The lens was then hydrodissected with balanced salt solution and found to be rotatable. The lens was emulsified using phacoemulsification and a modified four-quadrant cracking technique. The residual cortical material was removed using automated irrigation and aspiration and as much of the anterior capsular rim was cleaned as well as possible. The posterior capsule was cleaned first with the automated machine on a low setting and then manually with a Barber squeegee. The capsular bag was deepened with viscoelastic. The lens a Technis 1 21.5 Diopter placed into the bag under direct visualization and rotated so that the haptics were at 12 and 6:00. Viscoelastic was then removed from the eye by flushing it out and then by automated irrigation and aspiration. The eye was pressurized to a normal tone. 1/10 of a cc of cefuroxime solution was introduced into the anterior chamber to provide antibiotic prophylaxis. The wounds were sealed by hydrating the stroma adjacent to them and the eye was left at a proper tone after the wounds were checked and found not to be leaking. The lid speculum was removed from the orbit. Antibiotic and steroid drops were placed on the eye and then the eye was shielded. Monitoring equipment was removed from the patient and the patient was removed from the operative suite to the holding area. The patient tolerated the procedure well and will be seen in the office tomorrow.
== END ==
LOC: STS 08-20 07:00
DX: H25.9 Unspecified age-related cataract (principal); H35.30 Unspecified macular degeneration; H40.9 Unspecified glaucoma; I10 Essential (primary) hypertension; E07.9 Disorder of thyroid, unspecified; Z86.73 Personal history of transient ischemic attack (TIA), and cerebral infarction without residual deficits
CPT/HCPCS: J2250; V2632